=== PATIENT | female | born 1995 | race Caucasian/White ===

== ENCOUNTER 2022-03-02 07:08 | Emergency (ER) | payer OTHER, SELFPAY ==
--- NOTE | ~2022-03-02 | US_ITS ---
US OB <=14 wk fetus w TV DATE: 03/02/2022 09:55 INDICATION: Pelvic pain, vaginal bleeding TECHNIQUE: Real-time imaging via transabdominal and transvaginal approaches COMPARISON: None FINDINGS: The uterus measures 8.87 hours height, up to 5.5 cm anteroposterior dimension. Intrauterine gestational sac with pole and yolk sac are identified. [place]-rump length averages 0.74 cm consistent with 6 weeks 4 days +/- 4 days estimated gestational age and PRASHANT of 10/22/2022. heart rate of 132 bpm. There is an approximately 2.4 x 4.5 cm subchorionic hematoma. The ovaries are not visualized. No pelvic mass or abnormal free pelvic fluid collection is detected. IMPRESSION: 2.4 x 4.5 cm Subchorionic hematoma 6 week 4 day +/- 4 days estimated gestational age; PRASHANT: 10/22/2022 Reviewed, dictated and finalized at [facility]. Reviewed, dictated and finalized at [facility].
[2022-03-02 07:13] VITALS: BP 110/77; PULSE 90; RESP 18; TEMP 36.6; O2SAT 100
--- NOTE | 2022-03-02 07:52 | ED.GENADULT ---
HPI - General Adult General Chief complaint: Vaginal Bleeding <Rj Craig MD - Last Filed: 03/02/22 17:46> Stated complaint: , vag bld <Rj Craig MD - Last Filed: 03/02/22 17:46> Time Seen by Provider: 03/02/22 07:23 <Rj Craig MD - Last Filed: 03/02/22 17:46> History of Present Illness HPI narrative: 18-year-old female presenting to the emergency department for evaluation of vaginal bleeding and lower abdominal cramping. Patient states she suspects she is approximately 2 months . Patient states she was on a cigarette break when she began having vaginal bleeding. Patient states since then she has also had some lower abdominal cramping. Patient has not yet had an ultrasound with this <Rj Craig MD - Last Filed: 03/02/22 17:46> Related Data Allergies/adverse reactions: Allergies Allergy/AdvReac Type Severity Reaction Status Date / Time Penicillins Allergy Anaphylaxis Verified 03/02/22 07:13 <Rj Craig MD - Last Filed: 03/02/22 17:46> Review of Systems Review of Systems: CONSTITUTIONAL: Denies fever, chills, or sweats. EYES: Denies visual changes, redness, or discharge. ENT: Denies rhinorrhea, congestion, sore throat, or otalgia. CARDIOVASCULAR: Denies chest pain, palpitations, or edema. RESPIRATORY: Denies cough or dyspnea. GASTROINTESTINAL: Denies abdominal pain, nausea, vomiting, or diarrhea. GENITOURINARY: Lower abdominal cramping and vaginal bleeding., See HPI patient denies any urinary symptoms SKIN: Denies rash or itching. MUSCULOSKELETAL: Denies back pain, joint pain, or myalgia. NEUROLOGIC: Denies headache, numbness, or weakness. PSYCHIATRIC: Denies anxiety or depression. <Rj Craig MD - Last Filed: 03/02/22 17:46> Exam Narrative: APPEARANCE: Well appearing, no pain, no distress, well-nourished. HEAD: normocephalic, atraumatic. EYES: PERRLA/EOMI, conjunctivae clear. NOSE: Normal no drainage NECK: Supple. No adenopathy, no masses. RESPIRATORY: Airway patent, respirations nonlabored. Clear to auscultation bilaterally, no rales, rhonchi, wheezing. CARDIOVASCULAR: Regular rate and rhythm without murmurs rubs or gallops. ABDOMINAL: Soft, nontender, nondistended, normal bowel sounds MUSCULOSKELETAL: Moves all extremities. Strength/ROM intact, No edema, No calf tenderness. NEURO: Alert. Cranial nerves II through XII intact. Grossly intact SKIN: Warm, dry. Normal Color <Rj Craig MD - Last Filed: 03/02/22 17:46> APPEARANCE: Well appearing, no pain, no distress, well-nourished. HEAD: normocephalic, atraumatic. EYES: PERRLA/EOMI, conjunctivae clear. NOSE: Normal no drainage NECK: Supple. No adenopathy, no masses. RESPIRATORY: Airway patent, respirations nonlabored. Clear to auscultation bilaterally, no rales, rhonchi, wheezing. CARDIOVASCULAR: Regular rate and rhythm without murmurs rubs or gallops. ABDOMINAL: Soft, nontender, nondistended, normal bowel sounds MUSCULOSKELETAL: Moves all extremities. Strength/ROM intact, No edema, No calf tenderness. NEURO: Alert. Cranial nerves II through XII intact. Grossly intact SKIN: Warm, dry. Normal Color PELVIC: Normal external genitalia. Normal-appearing cervix, closed. Small amount of dark red blood in the vaginal vault <Lorie Lewis PA-C - Last Filed: 03/02/22 10:11> Course Course Emergency Course: Case was discussed with Dr. Childers, physician on-call for the automatic mounter. Patient was informed to have close follow-up with PRESENTATION TEAM MEMBER. Patient was encouraged to return the emergency department if she had any bright red blood. <Rj Craig MD - Last Filed: 03/02/22 17:46> Vital Signs Vital signs: Vital Signs Temperature 97.9 F 03/02/22 07:13 Pulse Rate 90 03/02/22 07:13 Respiratory Rate 18 03/02/22 07:13 Blood Pressure 110/77 03/02/22 07:13 Pulse Oximetry 100 03/02/22 07:13 Oxygen Delivery Room Air 03/02/22 07:13 Temperature 9
[2022-03-02 08:01] LABS: Basophils Absolute Auto 0.1 K/mm3 (0.0-0.1); Basophils Percent Auto 0.5 % (0.2-1.2); Eosinophils Absolute Auto 0.1 K/mm3 (0-0.3); Eosinophils Percent Auto 0.6 % (0-4.4); Hematocrit 38.6 % (37.0-47.0); Hemoglobin 13.4 g/dL (12.0-15.0); Immature Granulocyte Absolute 0.07 K/mm3 (0.00-0.031); Immature Granulocyte Percent A 0.5 % (0-0.5); Lymphocytes Absolute Auto 1.71 K/mm3 (0.9-3.2); Lymphocytes Percent Auto 13.3 % (18.3-44.2); Mean Corpuscular HGB Conc 34.7 g/dl (32-36); Mean Corpuscular Hemoglobin 31.9 pg (26-34); Mean Corpuscular Volume 91.9 fl (80-100); Mean Platelet Volume 10.1 fl (7.4-10.4); Monocytes Absolute Auto 0.8 K/mm3 (0.1-0.6); Monocytes Percent Auto 5.9 % (2.6-8.5); Neutrophils Absolute Auto 10.2 K/mm3 (1.3-6.7); Neutrophils Percent Auto 79.2 % (45.5-73.1); Platelet Count Result 279 k/mm3 (150-375); Red Cell Distribution Width 13.2 % (11.5-14.5); White Blood Count 12.8 K/mm3 (4.5-10.0)
[2022-03-02] MEDS: RHO(D) IMMUNE GLOBULIN 300 MCG/2 ML SYRINGE IM (08:51)
--- NOTE | 2022-03-02 09:04 | PC.NURSE ---
IM injection given.
--- NOTE | 2022-03-02 10:34 | PC.NURSE ---
disposable panties given to pt per her request
== END 2022-03-02 11:40 | disposition home or self-care (01) ==
PROVIDERS: Emergency Provider Emergency Medicine; PCP Advanced Practice Midwife
DX: O46.8X1 Other antepartum hemorrhage, first trimester (principal); Z3A.01 Less than 8 weeks gestation of pregnancy
CPT/HCPCS: 36415; 76801; 76817; 84702; 85025; 85461; 90384; 96372; 99284; J2790

== ENCOUNTER 2022-07-18 09:46 | Outpatient (CLI) | payer OTHER, SELFPAY ==
[2022-07-18 10:16] LABS: Hematocrit 33.8 % (35.0-49.0); Hemoglobin 11.2 g/dL (12.0-15.0)
[2022-07-18 10:58] LABS: HIV 1 P24 AG Negative (Negative); HIV 1/2 AB Negative (Negative)
[2022-07-18 11:32] LABS: Glucose 1 Hour PP 50gm Dose 133 mg/dL (70-130)
== END 2022-07-18 09:47 | disposition home or self-care (01) ==
LOC: CHSLAB 09:51
PROVIDERS: PCP Obstetrics & Gynecology; Visit Provider Obstetrics & Gynecology
DX: Z36.89 Encounter for other specified antenatal screening (principal); O36.0130 Maternal care for anti-D [Rh] antibodies, third trimester, not applicable or unspecified
CPT/HCPCS: 36415; 82947; 85014; 85018; 85461; 86703; 86850; 86900; 86901; 90384; J2790

== ENCOUNTER 2022-07-24 11:22 | Outpatient (CLI) | payer OTHER, SELFPAY ==
--- NOTE | ~2022-07-24 | US_ITS ---
EXAMINATION: US breast BI limited HISTORY: Masses of the outer right breast and lower outer quadrant of the left breast TECHNIQUE: Limited bilateral breast ultrasound is performed. FINDINGS: There is an 11 mm x 7 mm oval, circumscribed, parallel, complex cystic and solid mass with no posterior features or internal vascularity of the right breast at the 10:00 location. There are mi ldly dilated subareolar ducts of the left breast without discrete mass. IMPRESSION: Probably benign mass in the upper outer quadrant of the right breast such as clustered microcysts. Co ntinued clinical follow-up and follow-up targeted right breast ultrasound in six months are recommend ed. BI-RADS category 3, probably benign findings. Reviewed, dictated and finalized at [facility]. DRAWER IMPRESSION: Probably benign mass in the upper outer quadrant of the right breast such as cl ustered microcysts. Continued clinical follow-up and follow-up targeted right b reast ultrasound in six months are recommended. BI-RADS category 3, probably benign findings.
== END 2022-07-24 11:23 | disposition home or self-care (01) ==
LOC: CHSIMG 11:24
PROVIDERS: Visit Provider Obstetrics & Gynecology
DX: N63.23 Unspecified lump in the left breast, lower outer quadrant (principal); N63.15 Unspecified lump in the right breast, overlapping quadrants
CPT/HCPCS: 76642

== ENCOUNTER 2022-07-30 13:54 | Emergency (ER) | payer OTHER, SELFPAY ==
--- NOTE | ~2022-07-30 | US_ITS ---
EXAMINATION: US OB follow up DATE: 07/30/2022 14:48 INDICATION: Contractions. TECHNIQUE: Real-time ultrasound of the pelvis was performed. COMPARISON: 03/02/2022. FINDINGS: There is a single living fetus in transverse, head to maternal left presentation. The placenta is po sterior. The margin of the placenta lies at the edge of the internal cervical os, without covering it . heart rate is 149 beats per minute (bpm). The amniotic fluid index is 22.3 cm, which is sligh tly elevated (5th to 95th percentile is 9.2 to 23.1 cm. The following biometric data were obtained: Biparietal diameter (BPD): 7.2 cm; head circumference (HC): 2.3 cm; abdominal circumference (AC): 23. 0 cm; femur length (FL): 5.1 cm. These measurements are discordant, with a greater than 2 week gap between the head circumference and the before AC/FL. The FL/HC ratio is 18.8 which is low. The remaining ratios are within normal limits . Estimated weight is 1113 g +/- 167 g, which correlates with the 10th percentile when 10/17/2022 i s used as estimated date of delivery. As single measurements, these parameters are each equal to the following estimated gestational ages w ith ranges of +/- 2 standard deviations: BPD: 28 weeks 5 days +/- 2 weeks 1 days. HC: 29 weeks 5 days +/- 2 weeks 0 days. AC: 27 weeks 3 days +/- 2 weeks 1 days. FL: 27 weeks 3 days +/- 2 weeks 1 days. estimated gestational age based solely on measurements from this exam is 28 weeks 2 days +/- 2 weeks 0 days. IMPRESSION: 1. Single living fetus in transverse presentation. 2. Grade 2 placenta previa, recommend repeat ultrasound at 32 weeks 2 assess persistence. 3. Biometrics detailed above. 4. Borderline polyhydramnios. 5. Possible asymmetric intrauterine growth restriction, recommend continued clinical and sonographic follow-up. 4. PRASHANT by ultrasound 10/20/2022. Reviewed, dictated and finalized at [facility] MECHANIC HELPER IMPRESSION: 1. Single living fetus in transverse presentation. 2. Grade 2 placenta previa, recommend repeat ultrasound at 32 weeks 2 assess p ersistence. 3. Biometrics detailed above. 4. Borderline polyhydramnios. 5. Possible asymmetric intrauterine growth restriction, recommend continued cli nical and sonographic follow-up. 4. PRASHANT by ultrasound 10/20/2022.
[2022-07-30 13:55] VITALS: BP 110/59; PULSE 78; RESP 20; TEMP 37.1; O2SAT 97
[2022-07-30] MEDS: SODIUM CHLORIDE 0.9% IV 1,000 ML 999 ML IV CONT (14:56)
[2022-07-30 14:58] LABS: Basophils Absolute Auto 0.06 K/mm3 (0.00-0.10); Basophils Percent Auto 0.3 % (0.0-1.0); Eosinophils Absolute Auto 0.07 K/mm3 (0.02-0.50); Eosinophils Percent Auto 0.4 % (1.0-6.0); Hematocrit 31.1 % (35.0-49.0); Hemoglobin 10.6 g/dL (12.0-15.0); Immature Granulocyte Percent A 3.4 % (0.0-0.0); Lymphocytes Absolute Auto 1.85 K/mm3 (1.10-4.50); Lymphocytes Percent Auto 10.5 % (18.0-42.0); Mean Corpuscular HGB Conc 34.1 g/dL (32.0-36.0); Mean Corpuscular Hemoglobin 32.8 pg (27.0-31.0); Mean Corpuscular Volume 96.3 fL (78.0-102.0); Monocytes Absolute Auto 0.97 K/mm3 (0.10-0.90); Monocytes Percent Auto 5.5 % (2.0-11.0); Neutrophils Absolute Auto 14.1 K/mm3 (1.7-7.2); Neutrophils Percent Auto 79.9 % (50.0-70.0); Platelet Count Result 215 K/mm3 (150-420); Red Blood Count 3.23 M/mm3 (4.20-5.40); Red Cell Distribution Width 13.1 % (11.6-14.4); White Blood Count 17.6 K/mm3 (4.8-10.8)
[2022-07-30 15:17] LABS: Alanine Aminotransferase 17 U/L (14-59); Albumin Level 2.8 g/dL (3.4-5.0); Alkaline Phosphatase 69 U/L (46-116); Anion Gap 8 mmol/L (8-16); Aspartate Amino Transferase 18 U/L (15-37); Bilirubin,Total 0.2 mg/dL (0.00-1.00); Blood Urea Nitrogen 6 mg/dL (7-18); Calcium 8.7 mg/dL (8.5-10.1); Carbon Dioxide 28 mmol/L (21-32); Chloride 102 mmol/L (98-108); Estimated CRCL calculation 144 ml/min; Estimated Glomerular Filt Rate > 60; Glucose 91 mg/dL (70-99); Osmolality Calculated 283 mOsm/kg (285-295); Sodium 138 mmol/L (136-145); Total Protein 6.4 g/dL (6.4-8.2)
[2022-07-30 15:43] LABS: Add Urine Microscopic? YES; Appearance Urine Clear (Clear); Bilirubin Urine Negative (Negative); Blood Urine Trace-Intact (Negative); Color Urine Yellow (Yellow); Glucose Urine UA Negative (Negative); Ketones Urine Negative (Negative); Leukocyte Esterase Ur Negative (Negative); Nitrate Urine Negative (Negative); Protein Urine Negative (Negative); Specific Grav Ur 1.025 (1.010-1.020); Urobilinogen Urine 0.2 mg/dL (0.2-1.0)
[2022-07-30 15:50] LABS: RBC Urine 0-2 /hpf (0-2); WBC Urine None seen /hpf (0-3)
[2022-07-30 15:51] LABS: Bacteria Urine Trace /hpf; Squamous Epithelial Cell Urine Moderate /hpf (Few)
[2022-07-30] MEDS: POTASSIUM CHLORIDE 20 MEQ TABLET 60 MEQ PO (16:36)
--- NOTE | 2022-07-30 16:55 | ED.PREGNANCY ---
HPI - General Chief complaint: OB/Uterine Contractions Stated complaint: trinity herrera Time Seen by Provider: 07/30/22 13:58 Source: patient and RN notes reviewed Limitations: no limitations History of Present Illness HPI Narrative: no acute uterine contractions or vaginal loss Complaint: contractions Pain Consistency: now resolved Severity: mild Severity scale (1-10): 1 Radiation: other (none) Relieving factors: none Exacerbating factors: none Vaginal bleeding: none Patient : Yes OB History - Current : no complications care: followed by OB Related Data Allergies Allergy/AdvReac Type Severity Reaction Status Date / Time Penicillins Allergy Anaphylaxis Verified 03/02/22 07:13 Review of Systems Review of Systems: All systems reviewed & are unremarkable except as noted in HPI and below Constitutional: Constitutional: Reports no additional constitutional complaints Eyes: Eyes: Reports no additional eye complaints ENT: Reports system reviewed and no additional complaints, except as documented Cardiovascular: Cardiovascular: Reports no additional cardiovascular complaints Respiratory: Respiratory: Reports no additional respiratory complaints Gastrointestinal: Gastrointestinal: Reports no additional gastrointestinal complaints Genitourinary: Genitourinary: Reports no additional female genitourinary complaints Musculoskeletal: Musculoskeletal: Reports no additional musculoskeletal complaints Integumentary/Breasts: Skin/Breast: Reports system reviewed and no additional complaints, except as docu Neurologic: Reports system reviewed and no additional complaints, except as documented Psychiatric: Psychiatric: Reports no additional psychiatric complaints Endocrine: Endocrine: Reports no additional endocrine complaints Hematologic/Lymphatic: Hematologic/Lymphatic: Reports no additional hematologic/lymphatic complaints Allergic/Immunologic: Allergic/Immunologic: Reports no additional allergic/immunologic complaints PMFSH Past Medical History Medical History Exam Const: General: healthy appearing, no acute distress and well nourished Nutritional Appearance: well nourished Orientation/consciousness: patient oriented x3 Limitations: no limitations HENMT: Head: normal to inspection Ears: external ears normal, TM's normal bilaterally and EAC's normal Face/Nose/Sinus: Normal external nose present, Normal nares present, normal facial exam and sinuses nontender Face and sinus: normal facial exam and sinuses nontender Mouth: Yes Normal oral and palatal mucosa present and Yes moist mucous membranes Teeth and gingiva: dentition normal Throat: posterior oropharynx normal Eyes: Conjunctivae: conjunctivae normal Pupils: Equal, round and reactive pupils present EOM: EOMs intact bilaterally Neck: Neck: normal visual inspection, no lymphadenopathy and no meningeal signs Chest: Chest palpation & inspection: normal inspection of the chest Resp: Effort & Inspection: normal respiratory effort Auscultation: clear to auscultation bilaterally Cardio: Rate: regular rate Rhythm: regular rhythm GI: GI Palp: Yes Soft to palpation and No Tenderness to palpation present (GI) Auscultation: normal bowel sounds : General: Yes bladder normal to palpation and Yes no CVA tenderness External Female Exam: normal external appearance (gravid uterus) Bimanual exam- vagina & uterus: bladder normal to palpation Back/Spine/Pelvis: Back: no CVA tenderness Skin: General skin exam: normal color Rashes: no rashes Wounds: no wounds Neuro: General: patient oriented x3, moves all extremities, no meningeal signs, no focal motor deficits and CN's II-XI intact bilaterally Cranial nerves: Yes Equal, round and reactive pupils present and Yes Nystagmus not present Speech: normal speech Gait exam (Neuro): Normal gait present Extrem: Gene
[2022-07-30 17:17] VITALS: BP 112/62; PULSE 76; RESP 18; TEMP 37.1; O2SAT 98
[2022-07-30 17:19] VITALS: PULSE 74; RESP 20; TEMP 36.7; O2SAT 99
== END 2022-07-30 17:20 | disposition home or self-care (01) ==
PROVIDERS: Emergency Provider Emergency Medicine; PCP Obstetrics & Gynecology
DX: O26.899 Other specified pregnancy related conditions, unspecified trimester (principal); E87.6 Hypokalemia; D72.829 Elevated white blood cell count, unspecified; Z3A.00 Weeks of gestation of pregnancy not specified
CPT/HCPCS: 36415; 76816; 80053; 81001; 85025; 96360; 99284; A9270; J7030

== ENCOUNTER 2022-10-09 15:55 | Outpatient (RCR) | payer OTHER, SELFPAY ==
[2022-10-09 18:00] LABS: Hematocrit 35.7 % (37.0-47.0); Hemoglobin 12.3 g/dL (12.0-15.0)
[2022-10-09 18:17] LABS: Glucose 1 Hour PP 50gm Dose 124 mg/dL
[2022-10-09 18:55] LABS: HIV 1/2 Ab P24 Ag Result Negative (Negative)
== END 2023-01-07 23:59 | disposition home or self-care (01) ==
LOC: ANHLAB 15:55
PROVIDERS: PCP Obstetrics & Gynecology; Visit Provider Obstetrics & Gynecology
DX: Z11.4 Encounter for screening for human immunodeficiency virus [HIV] (principal); Z29.13 Encounter for prophylactic Rho(D) immune globulin; O36.0130 Maternal care for anti-D [Rh] antibodies, third trimester, not applicable or unspecified; Z3A.00 Weeks of gestation of pregnancy not specified
CPT/HCPCS: 36415; 82947; 85014; 85018; 85461; 86703; 86850; 86900; 86901; 90384; G0432; J2790; J7120

== ENCOUNTER 2022-10-10 05:20 | Inpatient (IN) | payer OTHER, SELFPAY ==
[2022-10-10] VITALS (58 sets, daily range): BP systolic 99–120; BP diastolic 58–83; PULSE 42–94; RESP 11–18; TEMP 36.1–37.2; O2SAT 90–100; BMI 27.5; BMI 28.3
[2022-10-10] MEDS: LACTATED RINGERS 1,000 ML 999 ML IV CONT ×2 (05:55→06:44)
--- NOTE | 2022-10-10 06:31 | WPDANESEPPF ---
Anes - Initial Pre Proc Eval Procedure: Operation Date: 10/10/22 07:30 Proposed Procedures p Repeat Section with Bilateral Salpingectomy - Grisel Childers MD Date/Time: 10/10/22 06:31 Surgeon: Grisel Childers MD Pre Op Diagnosis: C/S Patient Data Age: 27 Gender: F Height: 1.63 m Weight: 75 kg Last Vital Signs Temp 36.8 C 10/10/22 05:57 Pulse 76 10/10/22 06:15 Resp 18 10/10/22 05:57 BP 105/60 10/10/22 06:15 Allergies Allergy/AdvReac Type Severity Reaction Status Date / Time Penicillins Allergy Severe Anaphylaxis Verified 09/24/22 14:45 Home Medications Medication Instructions Recorded Confirmed Type prenat.vits,jed,[id number] 1 tablet PO DAILY 09/24/22 09/24/22 History valacyclovir 500 mg tablet 500 mg PO DAILY 09/24/22 09/24/22 History (Valtrex) Laboratory Tests 10/10/22 06:23 WBC Pending RBC Pending Hgb Pending Hct Pending MCV Pending MCH Pending MCHC Pending RDW Pending Plt Count Pending MPV Pending Immature Gran % (Auto) Pending Neut % (Auto) Pending Lymph % (Auto) Pending [place] % (Auto) Pending Eos % (Auto) Pending Baso % (Auto) Pending Lymph # (Auto) Pending [place] # (Auto) Pending Eos # (Auto) Pending Baso # (Auto) Pending Abs Immat Gran (auto) Pending Absolute Neuts (auto) Pending Absolute Nucleated RBC Pending Nucleated RBC % Pending Patient hx anesthesia problems: none Family hx anesthesia problems: none Results Review: All pre-operative results and documents have been reviewed as part of the pre-operative evaluation. [facility] Past Medical History Medical History Genital herpes Smoker Surgical History Surgical History (Updated 10/10/22 @ 06:31 by Melo Todd MD) History of section Family History Family History Other Patient denies significant medical history Social History Social History Substance use: never Spiritual care concerns: No Anes - Eval Final PreProcedure Day of Procedure 10/10/22 06:31 Patient weight: overweight Heart: regular rate and rhythm Lungs: clear to auscultation Airway: Mallampati scale class II and special considerations poor dentition Neurological: alert and oriented Last oral intake: >/= 8 hours ASA classification: III Emergent: no Anesthetic plan: proceed Anesthesia type and monitoring: regional spinal and standard monitoring Results Review: All pre-operative results and documents have been reviewed as part of the pre-operative evaluation. Informed Consent: The patient's anesthetic plan and its attendant risks and benefits were discussed with the patient/family/POA. Questions were solicited and answers provided to the satisfaction of the patient/family/POA.
[2022-10-10 06:39] LABS: Basophils Absolute Auto 0.1 K/mm3 (0.0-0.1); Basophils Percent Auto 0.5 % (0.2-1.2); Eosinophils Absolute Auto 0.1 K/mm3 (0-0.3); Eosinophils Percent Auto 0.7 % (0-4.4); Hematocrit 34.9 % (37.0-47.0); Hemoglobin 11.8 g/dL (12.0-15.0); Immature Granulocyte Absolute 0.35 K/mm3 (0.00-0.031); Immature Granulocyte Percent A 2.2 % (0-0.5); Lymphocytes Absolute Auto 1.75 K/mm3 (0.9-3.2); Lymphocytes Percent Auto 11.1 % (18.3-44.2); Mean Corpuscular HGB Conc 33.8 g/dl (32-36); Mean Corpuscular Hemoglobin 32.5 pg (26-34); Mean Corpuscular Volume 96.1 fl (80-100); Monocytes Absolute Auto 1.1 K/mm3 (0.1-0.6); Neutrophils Absolute Auto 12.4 K/mm3 (1.3-6.7); Neutrophils Percent Auto 78.5 % (45.5-73.1); Platelet Count Result 193 k/mm3 (150-375); Red Blood Count 3.63 M/mm3 (4.2-5.4); White Blood Count 15.8 K/mm3 (4.5-10.0)
[2022-10-10] MEDS: ceFAZolin 2 GM/D5W 50 ML 2 GM/50 ML BAG IVPB (06:45)
--- NOTE | 2022-10-10 06:50 | LDADM ---
This patient, Lynn Childers, was admitted to Labor/Delivery/Recovery 120 on 10/10/22 at 05:20. Plans for labor, pain management and were discussed with patient. Patient/family oriented to hospital policies and general routines including ID bracelet, bed and alarms, visiting hours, pain management, procedures, bathroom and other care routines, personal items, smoking policy, room service/diet and guest tray routines, infant security routines, and visiting hours. Patient/Family are encouraged to report perceived risks to care and to ask questions if they do not understand what they are told or what they should do. See OBIX for further documentation.
--- NOTE | 2022-10-10 07:20 | PM.IMHP ---
H&P: HPI History of Present Illness Date/Time: 10/10/22 07:20 Chief Complaint: R CS Narrative: Lynn is a 27yo at 39.0 here for R CS. Has two prior. Also wants sterilization with bilateral salpingectomy. complicated by genital herpes, on valtrex, tobacco use, Rh neg, got Rhogam, and circumvallate and bilobed placenta. Review of Systems Review of Systems: All systems reviewed & are unremarkable except as noted in HPI and below PMFSH Past Medical History Medical History Genital herpes Smoker Surgical History Surgical History (Updated 10/10/22 @ 07:22 by Grisel Childers MD) History of section Family History Family History Other Patient denies significant medical history Social History Social History Smoking packs per day: 1 Smoking cigarettes per day: 20.0 Years smoked: 14 Smoking pack-years: 14.00 Smoking status: Current every day smoker Tobacco type: cigarettes Second hand tobacco smoke exposure: Yes Substance use: never Lack of Transportation: No Lack of Food: Never True Current Housing: I Have Housing Concerned About Future Housing: No Difficulty Paying Gas/Electric Bills: No Difficulty Paying for Meds: No Currently Unemployed: No Education: Don't Know Difficulty w/ Childcare or Family Care: No Spiritual care concerns: No Meds Home Medications and Allergies Home Medications Medication Instructions Recorded Confirmed Type prenat.vits,jed,[id number] 1 tablet PO DAILY 09/24/22 09/24/22 History valacyclovir 500 mg tablet 500 mg PO DAILY 09/24/22 09/24/22 History (Valtrex) Allergies Allergy/AdvReac Type Severity Reaction Status Date / Time Penicillins Allergy Severe Anaphylaxis Verified 09/24/22 14:45 Vital Signs Vital Signs - 24 hr 10/10/22 05:49 10/10/22 06:00 10/10/22 06:15 Temperature Pulse Rate 85 80 76 Respiratory Rate Blood Pressure 111/68 102/67 105/60 Oxygen Delivery 10/10/22 06:35 10/10/22 06:45 10/10/22 05:57 Temperature 98.3 F Pulse Rate 85 79 Respiratory Rate 18 Blood Pressure 111/59 L 115/58 L Oxygen Delivery 10/10/22 06:48 Temperature Pulse Rate Respiratory Rate Blood Pressure Oxygen Delivery Room Air Exam Const: General: no acute distress Resp: Effort & Inspection: normal respiratory effort Auscultation: clear to auscultation bilaterally Cardio: Rate: regular rate Rhythm: regular rhythm GI: GI Palp: Yes Soft to palpation Extrem: General: normal to inspection H&P: Results Labs Labs: Short CBC 10/10/22 Range/Units 06:23 WBC 15.8 H (4.5-10.0) K/mm3 Hgb 11.8 L (12.0-15.0) g/dL Hct 34.9 L (37.0-47.0) % Plt Count 193 (150-375) k/mm3 Assessment and Plan Assessment and plan (1) History of delivery: Code(s): Z98.891 - History of uterine scar from previous surgery Status: Acute (2) Genital herpes: Code(s): A60.00 - Herpesviral infection of urogenital system, unspecified Status: Acute (3) Encounter for sterilization: Code(s): Z30.2 - Encounter for sterilization Status: Acute Plan Will proceed with R CS and bilateral salpingectomy. DIscussed RBA, consented, questions answered. has been on valtrex
--- NOTE | 2022-10-10 07:23 | WPDHPUPDATE1 ---
History and Physical Update Update Date/Time: 10/10/22 07:23 History and Physical has been reviewed, including an updated exam of the patient. There are NO changes in the patient's condition. Risks, benefits, and alternatives have been discussed and questions answered. Patient agrees to proceed with procedure.
[2022-10-10] MEDS: KETOROLAC 30 MG/ML VIAL (*BKC) IV PUSH ×3 (08:16→23:10)
--- NOTE | 2022-10-10 08:33 | PM.OBPRVD ---
OB - Delivery Note Procedure Delivery date: 10/10/22 Procedure: Procedures Operation Date: 10/10/22 07:30 <No data on this case meets the specified criteria> repeat low transverse section and bilateral salpingectomy Events: Previous Delivery Route of delivery: Specimen: Yes (placenta) Quantitative Blood Loss (ml): 475 Anesthesia type: Spinal Disposition: Floor Complications: none Narrative: The patient was taken to the OR and received spinal anesthesia. She was placed in dorsal supine position with left lateral tilt. SCDs and moody were placed. She was prepped and draped in the normal sterile fashion. A Pfannensteil skin incision was made and carried through to the underlying layer of fascia. The fascia was incised in the midline and then extended laterally using Real scissors. The muscles were in the midline and the peritoneum was entered bluntly. The peritoneal incision was extended inferiorly and superiorly with care to avoid the bladder. The bladder blade was then inserted, the vesicouterine peritoneum was grasped, incised with Metzenbaum scissors, and a bladder flap created. The bladder blade was reinserted. A low transverse uterine incision was made with a scalpel and extended bluntly. AROM was performed and fluid was noted to be clear. The head was delivered, followed by the remainder of the baby. The baby's oropharynx was suctioned. After 30 seconds, the cord was clamped and cut and the infant was handed off. Cord blood was obtained and the placenta was then removed manually. The uterus was exteriorized. A moist lap sponge was used to curette the endometrium. The uterine incision was then closed with one layer of 0-Vicryl in a running, locking fashion. Good hemostasis was noted. I then turned attention to the tubes. Using the Ligasure, the right tube was removed by sequentially clamping, cauterizing, and cutting the tube free from the cornua and the broad ligament. Similarly, the left tube was removed. The posterior cul de sac was irrigated with normal saline and cleared of all clot and debris. The uterus was returned to the abdomen. Both lateral gutters were then irrigated. The rectus muscles were inspected and found to be hemostatic. The fascia was reapproximated using 0-Vicryl in running fashion. The subcutaneous tissue was irrigated with normal saline and made hemostatic with Bovie electrocautery. The skin was then closed with reabsorbable kim. Steri strips and a bandage were applied. The uterus was evacuated. The patient tolerated the procedure very well. All counts were correct. She was taken to the recovery room in good condition. Baby Date of : 10/10/22 Time of : 07:57 Weeks of gestation at delivery: 39 Infant gender: Female Weight (pounds): 6 Weight (ounces): 10 presentation: vertex Placenta delivery description: Manual Removal Cord Vessel Description: 3 Vessels, Nuchal Cord and Delayed Cord Clamping score one minute: 9 score five minutes: 9
[2022-10-10] MEDS: MORPHINE SULFATE INJ (*CRX) 10 MG/ML AMP 2 MG IV PUSH (10:39)
[2022-10-10] MEDS: OXYTOCIN 30 UNITS/NS 500 ML 30 UNITS/500 ML BAG 125 UNITS IV CONT (11:05)
[2022-10-10 11:50] LABS: Amphetamine Screen Urine Negative (Negative); Barbiturate Screen Urine Negative (Negative); Benzodiazepines Screen Urine Negative (Negative); Cannabinoid Screen Urine Positive (Negative); Cocaine Screen Urine Negative (Negative); Methadone Screen Urine Negative (Negative); Opiate Screen Urine Positive (Negative); Phencyclidine Screen Urine Negative (Negative)
[2022-10-10] MEDS: HYDROcodone/acetaminophen (*CRX) 10-325 MG TABLET 1 TAB PO ×2 (13:00→17:00)
[2022-10-10 13:50] LABS: Rapid Plasma Reagin Non-Reactive (NonReactive)
[2022-10-10] MEDS: DEXTROSE 5%/0.45% SOD CHL 1,000 ML 125 ML IV CONT (15:30)
[2022-10-10] MEDS: DOCUSATE SODIUM 100 MG CAPSULE PO (17:04)
[2022-10-10] MEDS: diphenhydrAMINE HCl INJ 50 MG/ML VIAL 25 MG IV PUSH (18:06)
--- NOTE | 2022-10-10 18:14 | PC.NURSE ---
UDS collected after pt had been given morphine and anesthesia meds for delivery.
[2022-10-11] MEDS: SIMETHICONE 80 MG TAB.CHEW PO (03:10)
[2022-10-11] MEDS: HYDROcodone/acetaminophen (*CRX) 5-325 MG TABLET 1 TAB PO ×3 (03:10→23:46)
[2022-10-11 04:08] VITALS: BP 115/74; PULSE 74; RESP 18; TEMP 36.6; O2SAT 98
[2022-10-11 04:30] LABS: Basophils Absolute Auto 0.1 K/mm3 (0.0-0.1); Basophils Percent Auto 0.5 % (0.2-1.2); Eosinophils Absolute Auto 0.1 K/mm3 (0-0.3); Eosinophils Percent Auto 0.5 % (0-4.4); Hematocrit 32.4 % (37.0-47.0); Hemoglobin 10.9 g/dL (12.0-15.0); Immature Granulocyte Absolute 0.28 K/mm3 (0.00-0.031); Immature Granulocyte Percent A 1.7 % (0-0.5); Lymphocytes Absolute Auto 1.62 K/mm3 (0.9-3.2); Lymphocytes Percent Auto 9.9 % (18.3-44.2); Mean Corpuscular HGB Conc 33.6 g/dl (32-36); Mean Corpuscular Hemoglobin 32.1 pg (26-34); Mean Corpuscular Volume 95.3 fl (80-100); Mean Platelet Volume 10.4 fl (7.4-10.4); Monocytes Percent Auto 5.8 % (2.6-8.5); Neutrophils Absolute Auto 13.4 K/mm3 (1.3-6.7); Neutrophils Percent Auto 81.6 % (45.5-73.1); Platelet Count Result 188 k/mm3 (150-375); Red Cell Distribution Width 14.3 % (11.5-14.5); White Blood Count 16.4 K/mm3 (4.5-10.0)
[2022-10-11] MEDS: IBUPROFEN 600 MG TABLET PO ×3 (08:26→23:46)
[2022-10-11] MEDS: MULTIVIT/MIN/PREN/FOL AC/IRON TABLET 1 TAB PO (08:26)
[2022-10-11] MEDS: DOCUSATE SODIUM 100 MG CAPSULE PO ×2 (08:26→16:19)
[2022-10-11] MEDS: HYDROcodone/acetaminophen (*CRX) 10-325 MG TABLET 1 TAB PO ×3 (08:29→16:20)
[2022-10-11 08:30] VITALS: BP 111/67; PULSE 66; RESP 18; TEMP 37; O2SAT 100
--- NOTE | 2022-10-11 08:46 | P.PNOB_ITS ---
OB - PN: Subj Subjective Date/time seen: 10/11/22 08:46 Patient comments: no complaints and incisional pain baby status: doing well and nursing well feeding status: exclusively breast feeding Narrative: POD 1 from primary CS. Doing well. Normal lochia. Eating, ambulating, moody out, has voided. OB - PN: Obj Data Labs 10/11/22 03:16 Labs: Laboratory Results - last 24 hr 10/10/22 10/10/22 10/11/22 06:27 07:03 03:16 WBC RBC Hgb Hct MCV MCH MCHC RDW Plt Count MPV Immature Gran % (Auto) Neut % (Auto) Lymph % (Auto) Hendricks % (Auto) Eos % (Auto) Baso % (Auto) Lymph # (Auto) Hendricks # (Auto) Eos # (Auto) Baso # (Auto) Abs Immat Gran (auto) Absolute Neuts (auto) Absolute Nucleated RBC Nucleated RBC % Urine Opiates Screen Positive A Urine Methadone Screen Negative Ur Barbiturates Screen Negative Ur Phencyclidine Scrn Negative Ur Amphetamine Screen Negative U Benzodiazepines Scrn Negative Urine Cocaine Screen Negative U Cannabinoids Screen Positive A RPR Non-reactive Blood Type A Negative Antibody Screen Negative Screen Negative Baby's Blood Type A pos Baby's VERONICA Negative Doses of RhIg Required 1 10/11/22 03:16 WBC 16.4 H RBC 3.40 L Hgb 10.9 L Hct 32.4 L MCV 95.3 MCH 32.1 MCHC 33.6 RDW 14.3 Plt Count 188 MPV 10.4 Immature Gran % (Auto) 1.7 H Neut % (Auto) 81.6 H Lymph % (Auto) 9.9 L Hendricks % (Auto) 5.8 Eos % (Auto) 0.5 Baso % (Auto) 0.5 Lymph # (Auto) 1.62 Hendricks # (Auto) 1.0 H Eos # (Auto) 0.1 Baso # (Auto) 0.1 Abs Immat Gran (auto) 0.28 H Absolute Neuts (auto) 13.4 H Absolute Nucleated RBC 0.0 Nucleated RBC % 0.0 Urine Opiates Screen Urine Methadone Screen Ur Barbiturates Screen Ur Phencyclidine Scrn Ur Amphetamine Screen U Benzodiazepines Scrn Urine Cocaine Screen U Cannabinoids Screen RPR Blood Type Antibody Screen Screen Baby's Blood Type Baby's VERONICA Doses of RhIg Required OB - PN A/P Plan day: 1 Plan: routine care Comments: ambulate Time Spent With Patient Time: Total time spent is greater than 50% in coordination of care (as documented) at patient's floor/unit and/or counseling patient: Exam Narrative: NAD abdomen soft, appropriately tender, incision bandaged Extremities nontender with 1+ edema
[2022-10-11] MEDS: RHO(D) IMMUNE GLOBULIN 300 MCG/2 ML SYRINGE IM (13:15)
--- NOTE | 2022-10-11 13:51 | WPDANLDPN2 ---
Anes-Prog Note L&D Date/Time: 10/11/22 13:51 Comfortable throughout: section Neuraxial method: spinal Epidural/Spinal procedure site: clean & non-tender Neuro status: Neuro function grossly intact. Cardiovascular status: normal Respiratory status: normal Airway patency: baseline Mental status: baseline Post-Op hydration status: normal Vital Signs: Last Vital Signs Temp 98.6 F 10/11/22 08:30 Pulse 66 10/11/22 08:30 Resp 18 10/11/22 08:30 BP 111/67 10/11/22 08:30 Pulse Ox 100 10/11/22 08:30 O2 Del Method Room Air 10/11/22 04:08 Pain score (VAS): 0 I/O: Intake & Output 10/10/22 10/11/22 10/11/22 23:59 07:59 15:59 Intake Total 1300 200 Output Total 1600 1100 Balance -300 -900 Post-procedural complaints: pruritis moderate, treatment effective (meds X 1) Patient feedback: Patient satisfied with anesthetic care.
--- NOTE | 2022-10-11 13:51 | WPDANLDNPN2 ---
Anes-Prog Note L&D-Neuraxial Date/Time: 10/11/22 13:51 Neuraxial medications: intrathecal PF morphine Opiod-related complaints: pruritis moderate, treatment effective Patient feedback: Patient satisfied with post-operative pain management.
[2022-10-11] MEDS: LANOLIN (LANSINOH) 7.5 GM CREAM 1 APPLIC TOPICAL (16:21)
[2022-10-11 19:32] VITALS: BP 124/88; PULSE 81; RESP 18; TEMP 36.8; O2SAT 99
[2022-10-12] MEDS: HYDROcodone/acetaminophen (*CRX) 5-325 MG TABLET 1 TAB PO (05:05)
[2022-10-12 09:22] VITALS: BP 117/75; PULSE 81; RESP 18; TEMP 36.7; O2SAT 100
[2022-10-12] MEDS: DOCUSATE SODIUM 100 MG CAPSULE PO (09:31)
[2022-10-12] MEDS: HYDROcodone/acetaminophen (*CRX) 10-325 MG TABLET 1 TAB PO (09:31)
[2022-10-12] MEDS: MULTIVIT/MIN/PREN/FOL AC/IRON TABLET 1 TAB PO (09:31)
[2022-10-12] MEDS: IBUPROFEN 600 MG TABLET PO (09:31)
--- NOTE | 2022-10-12 10:11 | PM.OBPNVD ---
OB - PN: Subj Subjective Date/time seen: 10/12/22 10:11 Patient comments: no complaints and pain well controlled baby status: doing well and nursing well [place] feeding status: exclusively breast feeding Narrative: would like DC home. OB - PN: Obj Data Labs 10/11/22 03:16 OB - PN A/P Plan day: 2 Plan: routine care and discharge home Comments: DC instructions given Time Spent With Patient Time: Total time spent is greater than 50% in coordination of care (as documented) at patient's floor/unit and/or counseling patient: Exam Narrative: NAD abdomen soft, appropriately tender, incision CDI Extremities nontender with 1+ edema
--- NOTE | 2022-10-12 10:15 | P.DS_ITS ---
DS: Admitting Diagnosis Discharge Date 10/12/22 Admitting Diagnosis term IUP, prior CS DS: Discharge Diagnosis Discharge Diagnosis (1) delivery delivered: Code(s): O82 - Encounter for delivery without indication Status: Acute OB - DS: Summary Hospital Course Hospital Course: Lynn was admitted for scheduled repeat section at 39w. She also had a bilateral salpingectomy for sterilization. She had an uncomplicated delivery and course. She was discharged home on day 2 in stable condition.l OB Procedures : Ultrasound OB Procedures Intrapartum: and Tubal ligation OB Procedures: : None Peripartum Data Delivery Method: Section Procedures: Procedures Operation Date: 10/10/22 07:30 Actual Procedure Side Surgeon p Repeat Section with Bilateral Salpingectomy Grisel Childers MD complications: none Status at Discharge Functional status at discharge: independent ambulation Time Spent with Patient Time attestation: Total time spent providing and/or coordinating discharge services: Exam Narrative: NAD abdomen soft, appropriately tender, incision CDI DS: Data Data Completed and Pending Pending studies at discharge: Pending at discharge 10/10/22 08:05 Surgical [PTH] Routine Discharge Plan Discharge Attending physician on discharge: Grisel Childers Discharging Clinician: Grisel Childers Anticipated Discharge Date/Time: 10/12/22 10:12 Patient Disposition: Home, Self-Care Activity: may shower, no straining, may drive after 2 weeks and pelvic rest Diet: regular Patient Instructions: Antibiotic Form Stand Alone Forms: General Discharge Information Follow-up/Referrals: Grisel Childers MD [Physician] - 1 Week Discharge Medications: New hydrocodone-acetaminophen 5-325 mg Tablet 1 tablet PO Q4-5H PRN (Reason: Moderate Pain (4-6)) Qty: 40 0RF docusate sodium 100 mg Capsule 100 mg PO BID PRN (Reason: Constipation) Qty: 60 0RF ibuprofen 600 mg Tablet 600 mg PO Q6H PRN (Reason: Cramping) Qty: 60 0RF Continued valacyclovir [Valtrex] 500 mg Tablet 500 mg PO DAILY #2 Tablet 1 tablet PO DAILY Date of admission: 10/10/22 05:20 Primary Care Provider: PHYSICIAN,INTENSIVE CARE ANAESTHETIST Admitting Provider: Grisel Childers Attending physician on admission: Grisel Childers Condition: Stable
--- NOTE | 2022-10-12 11:25 | PC.NURSE ---
Patient viewed the discharge video Mother & Baby Care, The First Two Weeks . Patient was given the opportunity and encouraged to ask questions. Patient verbalized understanding of information shared and has been given the mother/baby guide for home reference.
== END 2022-10-12 11:25 | disposition home or self-care (01) | DRG 540 ==
LOC: ANHLDR 05:25 → ANHOB2 11:26
PROVIDERS: Admitting Provider Obstetrics & Gynecology; Visit Provider Obstetrics & Gynecology
PROC: 10D00Z1 Extraction of Products of Conception, Low, Open Approach (ICD-10-PCS; CPT 59514; principal; 2022-10-10 07:30)
DX: O34.219 Maternal care for unspecified type scar from previous cesarean delivery (principal); O98.52 Other viral diseases complicating childbirth; Z30.2 Encounter for sterilization; B00.9 Herpesviral infection, unspecified; O43.113 Circumvallate placenta, third trimester; O99.334 Smoking (tobacco) complicating childbirth; F17.210 Nicotine dependence, cigarettes, uncomplicated; O76 Abnormality in fetal heart rate and rhythm complicating labor and delivery; O69.81X0 Labor and delivery complicated by cord around neck, without compression, not applicable or unspecified; Z3A.39 39 weeks gestation of pregnancy; Z37.0 Single live birth; Z67.91 Unspecified blood type, Rh negative; Z88.0 Allergy status to penicillin
CPT/HCPCS: 36415; 80307; 85025; 85461; 86592; 86850; 86900; 86901; 88302; A9270; J0131; J0690; J1200; J1885; J2270; J2274; J2370; J2405; J2590; J2704; J7120

== ENCOUNTER 2023-09-09 09:19 | Outpatient (CLI) | payer OTHER, SELFPAY ==
--- NOTE | 2023-09-10 14:35 | WPDHOLTEREM ---
Holter/Event Monitor Holter/Event Monitor Date of procedure: 09/09/23 Holter/Event Procedure: 24 Hr Holter Monitor Indications: Syncope Conclusion: 1. 24 hour holter monitor on 09/09/23. 2. Underlying rhythm is sinus rhythm. HR range 40-126 bpm; average 68 bpm. HR at 40 bpm was at 04:37. 3. There are 163 premature supraventricular complexes and 52 supraventricular couplets. No supraventricular tachycardia. 4. No premature ventricular complexes. No ventricular tachycardia. 5. No sinoatrial or atrioventricular blocks. No significant pauses greater than 2 seconds. 6. Patient reports symptoms of dizziness which demonstrate sinus rhythm, HR range 66-71 bpm.
== END 2023-09-09 09:20 | disposition home or self-care (01) ==
LOC: CHSCARD 09:20
PROVIDERS: PCP Family Medicine; Visit Provider Family Medicine
DX: R55 Syncope and collapse (principal)
CPT/HCPCS: 93005; 93225; 93226

== ENCOUNTER 2023-10-12 13:58 | Outpatient (CLI) | payer OTHER, SELFPAY ==
--- NOTE | 2023-10-12 14:06 | ECHO_ITS ---
Patient Info Name: Lynn Childers Age: 28 years : 1995 Gender: Female Ht: 64 in Wt: 135 lbs BSA: 1.67 m2 HR: 68 bpm BP: 117 / 68 mmHg Heart Rhythm: Sinus Rhythm Technical Quality: Good Exam Date: 10/12/2023 3:10 PM Exam Location: Echo Lab Patient Status: Outpatient Admit Date: 10/12/2023 Staff Ordering Physician: ElaChan MD Developmental Education Instructor: Garret Castillo RDCS Attending Provider: ShiraChan MD Exam Type: CA echo doppler color flow Study Info Indications - syncope Complete two-dimensional, color flow and Doppler transthoracic echocardiogram is performed. Summary 1. Complete two-dimensional, color flow and Doppler transthoracic echocardiogram is performed. 2. Left ventricular chamber dimension is normal. 3. Left ventricular systolic function is normal, estimated at 60-65%. 4. The left ventricular diastolic function is normal. 5. E/e' 7 is not elevated. 6. There is trace tricuspid valve regurgitation. 7. No pulmonary hypertension, estimated pulmonary arterial systolic pressure is 13 mmHg. Left Ventricle E/e' 7 is not elevated. Left ventricular chamber dimension is normal. Left ventricular systolic function is normal, estimated at 60-65%. The left ventricular diastolic function is normal. Right Ventricle Right ventricular systolic function is normal and with normal TAPSE 2.1 cm. Right ventricular chamber dimension is normal. Left Atria Left atrial chamber dimension is normal. Right Atria Right atrial chamber dimension is normal. Aortic Valve The aortic valve is trileaflet. There is no aortic valve stenosis. There is no aortic valve regurgitation. Pulmonic Valve There is no pulmonic regurgitation. Mitral Valve There is no mitral valve stenosis. There is no mitral valve regurgitation. Tricuspid Valve There is trace tricuspid valve regurgitation. No pulmonary hypertension, estimated pulmonary arterial systolic pressure is 13 mmHg. Pericardium/Pleural There is no pericardial effusion. Inferior Vena Cava Normal inferior vena cava with >50% collapse upon inspiration consistent with normal right atrial pressure, 5 mmHg. Aorta The aortic root size at the sinus of Valsalva is normal. Left Ventricular Outflow Tract Name Value Normal LVOT 2D LVOT Diameter 1.8 cm LVOT Doppler LVOT Peak Velocity 93 cm/s LVOT Peak Gradient 3 mmHg LVOT Mean Gradient 2 mmHg LVOT VTI 21 cm LVOT VTI/AV VTI Ratio 1.2 LVOT Stroke Volume 57 ml Pulmonic Valve Name Value Normal RVOT Doppler RVOT Peak Gradient 1 mmHg PV Doppler PV Peak Velocity 86 cm/s PV Peak Gradient 3 mmHg Mitral Valve
== END 2023-10-12 13:59 | disposition home or self-care (01) ==
LOC: CHSIMG 14:02
PROVIDERS: PCP Family Medicine; Visit Provider Family Medicine
DX: R55 Syncope and collapse (principal)
CPT/HCPCS: 93306

== ENCOUNTER 2025-02-14 13:19 | Outpatient (CLI) | payer OTHER, SELFPAY ==
--- NOTE | ~2025-02-14 | US_ITS ---
EXAMINATION: US soft tissue UE RT DATE: 02/14/2025 13:45 INDICATION: Palpable lump at the base of the right thumb TECHNIQUE: Multiple grayscale and Doppler ultrasound images of the region of concern at the base of t he right thumb were obtained. COMPARISON: None FINDINGS: Palpable abnormality of concern corresponds to a 1.3 x 1.3 x 1.0 cm anechoic cystic lesion without in ternal vascular flow no surrounding hyperemia on color Doppler. There is a narrow neck extending deep er towards one of the underlying joint spaces consistent with a ganglion cyst. No abnormal soft tissu e masses identified. IMPRESSION: 1. The palpable abnormality corresponds to a 1.3 cm likely ganglion cyst. Reviewed, dictated and finalized at location B.
--- OUTSIDE RECORDS SUMMARY | 2025-02-14 13:24 | XMS_ITS | Clinical Summary ---
Author Organization [facility] Address [address] [place] [id number] Care Team Providers Care Sr Technical Sales Consultant Name Role Phone None, Provider Primary Care Provider Unavaila ble Allergies Active Allergy Reactions Criticality Noted Date Comments Penicillins Unknown 12/06/2020 Medications No known medications Social History Tobacco Use Types Packs/Day Years Used Date Smoking Tobacco: Every Day Smokeless Tobacco: Never Comments No Sex and Gender Information Value Date Recorded Sex Assigned at Not on file Legal Sex Female 4:03 PM CDT Gender Identity Not on file Sexual Orientation Not on file Last Filed Vital Signs Vital Sign Reading Time Taken Comments Blood Pressure 112/76 12/06/2020 8:00 PM CDT Pulse 76 12/06/2020 4:52 PM CDT Temperature 37.1 C (98.7 F) 12/06/2020 7:48 PM CDT Respiratory Rate 18 12/06/2020 4:52 PM CDT Oxygen Saturation 97% 12/06/2020 8:00 PM CDT Inhaled Oxygen Concentration - - Weight 61.5 kg (135 lb 9.3 oz) 12/06/2020 4:52 P M CDT Height 162.6 cm (5' 4) 12/06/2020 4:52 PM CDT Body Mass Index 23.27 12/06/2020 4:52 PM CDT Plan of Treatment Health Maintenance Due Date Last Done Comments Cervical Cancer Screening Pa p Smear (Age 30 to 64) Every 3 Years 1993 Annual Physical 1996 Hepatitis C 2011 Hepatitis B Vaccines (1 of 3 - 19+ 3-dose series) 2012 Pneumococcal Vaccine: Pediat rics (0 to 5 Years) and At-Risk Patients (6 to 49 Years) (1 of 2 - PCV) 2012 Cervical Cancer Screening Pa p with HPV Testing (Age 30 to 64) Every 5 Years 2023 Cervical Cancer Screening with HPV 2023 COVID-19 Vaccine (1 - 2023-2 5 season) 2024 DTaP, Tdap and Td Vaccines ( 2 - Td or Tdap) 08/02/2025 08/02/2015 HPV Vaccines Aged Out No longer eligi ble based on patient's age to complete this topic Meningococcal B Vaccine Aged Out No l onger eligible based on patient's age to complete this topic Meningococcal Vaccine Aged Out No marielena christa eligible based on patient's age to complete this topic RSV Immunizations Under 20 Months Aged Out No longer eligible based on patient's age to complete this topic Insurance [facility] [address] Care Teams Sr Technical Sales Consultant Relationship Specialty Start Date End Date None, Provider, PCP - General 12/06/20
--- OUTSIDE RECORDS SUMMARY | 2025-02-14 13:24 | XMS_ITS | Data Portability ---
Author Organization [facility], [place] Address [address] [place] [address] Assessment Encounter Date Assessment Date Assessment LastModified by Organization Details LastModified Time 10/17/2022 10/17/2022 Normal incision check at 1 week pp continue modified activities as tolerated continue vitamins support given, will call if mood worsens, denies depression. s/p salpingectomy, no BC needed Precautions given FU for 4 week exam Not available 10/17/2022 13:56:18 11/05/2022 11/05/2022 Normal exam May resume normal activities contraceptive plan--s/p salpingectomy FU for WWE Aug [email or web address] Not available 11/10/2022 17:48:53 12/09/2022 12/09/2022 extremely small seroma around absorbable staple kim at skin surface removed precautions given no signs of infection FU WWE [email or web address] Not available 12/09/2022 14:39:05 Plan of Treatment Reminders Order Date Submit Date Provider Last Modified By Organization Details Last Modified Time Details Appointments None record ed. Lab None record ed. Referral None record ed. Procedures None record ed. Surgeries None record ed. Imaging None record ed. Medication Orders None record ed. Patient TargetsNo targets recorded. Patient InstructionsNo instructions recorded. Reason for Referral None Reported. Results Created Date Observation Date Name Description Value Unit Range Abnormal Flag Note LastModifiedBy Organization Detail LastModifiedTime 10/03/19 23 10/03/2022 CULTU RE: GROUP B STREP SCREE N, REFLE X SUSCE PTIBI LITY result report SEE RESULT S BELOW Test: Cultu re: Group B Strep , Refle x Susce ptibi lity ([facility]/ [facility]/K [facility] ) Speci men Sourc e: Vagin a/Rec yassine Speci men Type: Vagin al/Re ctal Speci men Date: 2022 3:13 PM Resul t Date: 2022 2:01 PM Resul t Statu s: Final resul t Abnor mal: No Resul ting Lab: [facility] [address] [facility] [address] Tel: CULTU RE ----- ----- ----- --- No Group B strep isola joaquin at 2 days (steven ctive broth enhan cemen t) Not Available [facility] (Lab) [address], [place], [address], 10/06/2022 15:05:12 Result Notes None recorded. Problems Name Problem SNOMED Code Status Onset Date Resolution Date Notes Provider Name and Address Organization Details Recorded Time Pregnanc y 88374836 Completed 202112/01/2022 [facility] 3 16:10:32 Steriliz ation requeste d 740018251 Active salpinge ctomy with CS [facility] 3 16:10:27 Tobacco user 350646888 Active [facility] 3 16:10:27 Past pregnanc y history of section 535454973 Active x2, to do repeat 39w [facility] 3 16:10:27 RhD negative 421189388 Active [facility] 3 16:10:27 Genital herpes simplex 22527761 Active valtrex at 35-36 [facility] 3 16:10:27 Steriliz ation requeste d 048737903 Completed [facility] 16:10:27 Tobacco user 437828476 Completed Sloane Hough [facility] 3 16:10:27 Past pregnanc y history of section 404874248 Completed x2, to do repeat 39w Sloane Hough [facility] 3 16:10:27 RhD negative 582714325 Completed [facility] 3 16:10:27 Genital herpes simplex 02788099 Completed valtrex at 35-36 [facility] 3 16:10:27 Placenta circumva llata 8600066 Completed serial growth u[facility] 16:10:27 Low lying placenta 233336803 Completed 1.5cm at 28w, repeat 4w RESOLVED [facility] 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 3 16:10:27 Mass of right breast 71841731267 425486 Completed BI-RADS 3 - To send referral for breast speciali st 07/28/22 [facility] 3 16:10:27 Problem Notes None recorded. Procedures Surgical History Date Name Laterality Status Provider Name and Address Organization Details Recorded Time 10/10/19 23 SALPINGECTOMY (SURG) completed Gayle Kent [facility] 10/13/2022 10:55:41 04/02/20 22 Date of Last Pap Smear completed Lyn Desai [facility] 04/02/2022 16:32:12 01/29/20 21 [facility] 04/02/2022 16:31:32 10/26/19 16 Caesarean Section completed [facility] 04/02/2022 16:37:44 11/02/19 13 section completed [facility] 04/02/2022 16:37:57 Imaging Results None recorded. Procedure Notes None recorded. Medical Equipment None Reported. Allergies Allergen ID Allergen Name Allergen Category Reaction Reaction Severity Criticality Documentation Date Start Date Code Code System Note Provider Name and Address Organization Details Recorded Time 20232 Product containin g penicilli n (product) medicatio n facial swelling severe Not available 04/02/2022 00065 8001 SNOMED [facility] 16:31:31 Medications Name Sig Start Date Stop Date Status Note LastModified by Organization Details LastModified Time clindamycin HCl 300 mg capsule TAKE 1 CAPSULE BY MOUTH THREE TIMES A DAY active Not Available Not Available No t Available valacyclovir 1 gram tablet TAKE 1 TABLET BY MOUTH EVERY DAY 11/05 completed Not Available Not Available Not Available hydrocodone 5 mg-acetamino phen 325 mg tablet TAKE 1 TABLET BY MOUTH EVERY 4 TO 6 HOURS NEEDED 11/05 completed Not Available Not Available Not Available acetaminophe n 300 mg-codeine 30 mg tablet TAKE 1 TABLET BY MOUTH EVERY 6 HOURS NEEDED FOR PAIN 04/02 completed Not Available Not Available Not Available Daily 28 mg-800 mcg-440 mg oral pack active Not Available Not Available No t Available potassium chloride ER 20 mEq tablet,exten ded release TAKE 1 TABLET BY MOUTH EVERY DAY 11/05 completed Not Available Not Available Not Available Vitals Date Recorded Body height Body mass index (BMI) Body weight Systolic blood pressure Diastolic blood pressure Provider Name and Address Organization Details Last Updated DateTime 10/03/2022 163.83 cm 27.9 kg/m2 33809.74 105 g 107 mm[Hg] 67 mm[Hg] [facility] 14:30:04 Date Recorded Body height Body mass index (BMI) Systolic blood pressure Diastolic blood pressure Provider Name and Address Organization Details Last Updated DateTime 10/17/2022 163.83 cm 25.2 kg/m2 122 mm[Hg] 84 mm[Hg] [facility] 10/17/2022 12:50:29 Date Recorded Body weight Provider Name an d Address Organization Details Last Updated DateTime 10/17/2022 [phone] [facility] 12/01/2022 16:10:31 Date Recorded Body height Body mass index (BMI) Systolic blood pressure Diastolic blood pressure Provider Name and Address Organization Details Last Updated DateTime 11/05/2022 163.83 cm 24.2 kg/m2 113 mm[Hg] 71 mm[Hg] [facility] 11/05/2022 12:23:48 Date Recorded Body weight Provider Name an d Address Organization Details Last Updated DateTime 11/05/[phone] alyse [facility] 12/01/2022 16:10:31 Date Recorded Body height Body mass index (BMI) Body weight Systolic blood pressure Diastolic blood pressure Provider Name and Address Organization Details Last Updated DateTime 12/09/2022 163.83 cm 23.2 kg/m2 95883.15 g 118 mm[Hg] 60 mm[Hg] [facility] 10:13:00 Social History Question Answer Notes LastModified by Organizat ion Details LastModified Time Tobacco Smoking Status Current Every Day Smoker Jono miguel [facility] 12/09/2022 09:47:57 Do You Have An Advance Directive? No [email or web address] Information not available 04/02/2022 If You Are , What Was Your Level Of Alcohol Consumption Prior To ? Occasional [email or web address] Information not available 12/09/2022 Are You Blind Or Do You Have Difficulty Seeing? No [email or web address] Information not available 04/02/2022 What Is Your Level Of Caffeine Consumption? Heavy [email or web address] Information not available 04/02/2022 How Much Tobacco Do You Chew? None [email or web address] Information not available 04/02/2022 In The 14 Days Before Symptom Onset, Have You Had Close Contact With A Laboratory-confir med COVID-19 While That Case Was Ill? No [email or web address] Information not available 04/02/2022 In The 14 Days Before Symptom Onset, Have You Had Close Contact With A Person Who Is Under Investigation For COVID-19 While That Person Was Ill? No [email or web address] Information not available 04/02/2022 Have You Been To An Area Known To Be High Risk For COVID-19? No [email or web address] Information not available 04/02/2022 Are You Deaf Or Do You Have Serious Difficulty Hearing? No [email or web address] Information not available 04/02/2022 What Type Of Diet Are You Following? REGULAR [email or web address] Information not available 04/02/2022 What Is The Highest Grade Or Level Of School You Have Completed Or The Highest Degree You Have Received? HR14481-3 [email or web address] Information not available 04/02/2022 Are There Any Guns Present In Your Home? No [email or web address] Information not available 04/02/2022 Do You Use Protection During Sex? No [email or web address] Information not available 07/24/2022 Do You Use Your Seat Belt Or Car Seat Routinely? Yes [email or web address] Information not available 04/02/2022 Do You Have Smoke And Carbon Monoxide Detectors In Your Home? Yes [email or web address] Information not available 04/02/2022 At What Age Did You Start Smoking Tobacco? 13 [email or web address] Information not available 04/02/2022 How Much Tobacco Do You Smoke? 1 PPD [email or web address] Information not available 04/02/2022 Do You Use Sunscreen Routinely? No [email or web address] Information not available 04/02/2022 Has Tobacco Cessation Counseling Been Provided? No [email or web address] Information not available 12/09/2022 How Many Years Have You Smoked Tobacco? 13 [email or web address] Information not available 04/02/2022 Have You Used IV Drugs? No [email or web address] Information not available 04/02/2022 Do You Have Difficulty Walking Or Climbing Stairs? No [email or web address] Information not available 12/09/2022 Sex: Unknown Functional Status Question Answer Note LastModified by Organizat ion Details LastModified Time Do you use any illicit or recreational drugs? Yes weed [email or web address] Information not available 04/02/2022 Do you or have you ever used any other forms of tobacco or nicotine? No [email or web address] Information not available 12/09/2022 What is your level of alcohol consumption? None [email or web address] Information not available 04/02/2022 Are you able to walk? YESWOREST [email or web address] Information not available 04/02/2022 Are you able to care for yourself? 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 No [email or web address] Information not available 12/09/2022 What is your exercise level? Occasional [email or web address] Information not available 04/02/2022 Mental Status Question Answer Note LastModified by Organization D etails LastModified Time Do you feel stressed (tense, restless, nervous, or anxious, or unable to sleep at night)? [id number] [email or web address] Information not available 07/24/2022 Family History Relationship Description Onset Age of this Age Resolved Age Notes LastModified by Organization Details LastModified Time Unspecified Relation Family history unknown Not available 04/02 16:31:32 Father No current problems or disability [email or web address] Not available 12/09 09:47:57 Mother No current problems or disability [email or web address] Not available 12/09 09:47:57 Medical History Condition Response Allergies (Food, seasonal, environmental ) N Other N Breast Cancer N Drug/Latex Allergies/Reactions Y Blood Transfusion N Dermatologic Disorders N Lung Disease N Defects or Inherited Disease N Breast Problem N Gestational Diabetes N Hematologic disorders N Anesthesia Complications N History of STI Y Deep Vein Thrombosis N Polycystic ovary syndrome N Anxiety Disorder N Autoimmune disease N Arthritis N Infertility N Polyps N Acid Reflux (GERD) N History of abnormal pap N Cancer N Stroke N Varicosities N Neurologic/Epilepsy N Endometriosis N High Cholesterol N Headaches N Fibromyalgia N Kidney Disease N Heart Problems N Kidney or Bladder Problems N Thyroid Problems N GI Problems N Eating Disorder N Anemia N Art (IVF or FET) N Psychiatric Illness N Ovarian Cancer N Diabetes N Pulmonary (TB, Asthma) N Hepatitis/Liver Disease N No Past Medical History N Eczema N Urinary Tract Infection N Abuse/Domestic Violence N Asthma N Trauma/Violence N Depression/ depression N Heart Disease N Pre-Eclampsia N Hypertension N Osteoporosis N Thrombophilias N Gynecological History Statement/Question Response Abnormal Pap N Date of Last Mammogram Date of LMP N STIs/STDs Yes Was last menstrual period normal N Current Control Method Age at First Child 17 Date of control 10/08/2021 Sexually Active? Y Date of DEXA bone scan Date of Last Pap Smear 04/02/2022 Sexual Problems? N LMP Unknown 01/28/2021 N Obstetrics History GPAL:G 3 P 3 0 0 3 Type Value Full Term 3 Living 3 Total 3 Past Encounters Encounter ID Performer Location Encounter Start Date Encounter Closed Date Diagnosis/Indication Diagnosis SNOMED-CT Code Diagnosis ICD10 Code Diagnosis Note [id number] Grisel Childers MD [place] [address],[facility] [place] [address] 04/02/2022 15:15:37 04/02/2022 17:11:54 screening 735484330 Z36.82 [id number] Chen Magaña [facility] [address],[place] [address] 04/02/2022 15:16:09 04/02/2022 17:10:43 test positive 869310982 Z32.01 [id number] Grisel Childers MD [place] [address],[facility] [place] [address] 04/30/2022 15:06:49 05/02/2022 11:12:18 Routine care 206667916 Z34.91 Past pregn caleb history of section 163771527 Z98.890 Genital he rpes simplex 21735896 A60.9 RhD negative 615846241 Z 01.83 Sterilizat ion requested 373253863 Z30.2 Tobacco user 159010351 Z 72.0 [id number] Grisel Childers MD [place] [address],[place] [address] 05/30/2022 11:15:07 05/30/2022 11:48:51 Routine care 044976631 Z34.91 RhD negative 955767973 Z 01.83 [id number] MD Noris Kathleen [address],[place] [address] 06/03/2022 15:16:28 06/03/2022 17:17:30 screening for malformation 168944270 Z36.3 [id number] MD Noris Kathleen [address],[place] [address] 06/26/2022 10:22:39 06/26/2022 11:05:11 screening 439851818 Z36.2 O44.40 O43.112 Z3A.23 [id number] MD Noris Kathleen [address],[place] [address] 06/27/2022 14:45:45 06/28/2022 09:42:30 Routine care 993020061 Z34.91 Tobacco user 843798874 Z 72.0 [id number] Bobbi Girard [facility] [address],[place] [address] 07/24/2022 10:14:09 07/24/2022 13:10:23 Routine care 595654183 Z34.92 [id number] Grisel Childers MD [place] [address],[place] [address] 07/24/2022 10:14:37 07/24/2022 11:10:36 Placenta circumvallata 2568978 O43.112 O44.40 Z3A.27 [id number] MD Noris Kathleen [address],[place] [address] 08/22/2022 10:06:42 08/22/2022 13:44:06 Placenta circumvallata 5196536 O43.112 O44.40 Z3A.32 [id number] MD Noris Kathleen [address],[place] [address] 08/22/2022 10:50:12 08/22/2022 14:17:11 Past history of section 426503590 Z98.890 Sterilizat ion requested 979748416 Z30.2 [id number] Grisel Childers MD [place] [address],[place] [address] 09/08/2022 11:39:39 09/08/2022 12:10:21 Routine care 455485557 Z34.91 Genital he rpes simplex 72542627 A60.9 [id number] Bobbi Girard [facility] [address],[place] [address] 09/22/2022 12:18:42 09/22/2022 17:55:55 [id number] Bobbi Girard [facility] [address],[place] [address] 09/23/2022 14:07:03 09/23/2022 14:54:52 Routine care 784307112 Z34.92 [id number] Grisel Childers MD [place] [address],[place] [address] 10/03/2022 14:20:32 10/03/2022 15:02:09 Past history of section 421917352 Z98.890 Sterilizat ion requested 288059126 Z30.2 Genital he rpes simplex 91786977 A60.9 [id number] Grisel Childers MD [place] [address],[place] [address] 10/17/2022 12:45:38 10/17/2022 14:15:24 Postoperative visit 951093829 Z09 [id number] MD Janel [place] [address],[place] [address] 11/05/2022 12:15:07 11/06/2022 15:05:16 care 741423656 Z39.2 [id number] Grisel Childers MD [place] [address],[place] [address] 12/09/2022 09:47:53 12/09/2022 15:07:32 Wound seroma 320970512 T88.8XXA extremely small Health Concerns Section Related Observation LastModified by Organization Detai ls LastModified Time None Recorded Concern Status LastModified by Organization Details LastModified Time None Recorded Advance Directives Directive N: Payers Insurance Date Sequence Insurance Name Policy Number Policy Lares Covered Member ID Lares Member ID Guarantor Name 12/08/2022 1 [facility] - DOS ON OR AFTER 21 (MEDICAID REPLACEMENT - HMO) [id number] Lynn Childers [id number] Lynn Childers Notes Date Note Type Note Provider Name and Address Organization Details Recorded Time 10/17/2022 text/html Patient is a 27y o presenting for a 1 week visit for incision check. She had a R CS with salpingectomy at 39 weeks [place]. Baby Magdalena was 6-10 and is doing great. didn't work out again and she has been upset about this. Fairly emotional, but also stopped smoking 6 days ago, and denied depression. Doing well overall. bottlefeeding. Normal lochia. Pain- minimal. Bowel and bladder function normal. [place] score 5 Concerns: none Grisel Childers MD [address], [place], [address], [facility] 10/17/2022 13:57:28 11/05/2022 text/html Patient is a 27yo presenting for a 4 week visit. She had a R CS and salpingectomy 10/10 at 39 weeks GA. Baby Magdalena was 6-10. She is still not smoking. Her mood is so much better. Doing well overall. Normal lochia. Pain- none except still some carpal tunnel. Bowel and bladder function normal. Period-no Annual due:Mar Concerns: none Grisel Childers MD [address], [place], [address], [facility] 11/10/2022 17:49:22 12/09/2022 text/html Here 8+ weeks s/ p R Cs c/o small amount of yellow drainage from right side of incision last few days. white thing sticking out. No increased pain. no fevers. not like pus. no bleeding. Grisel Childers MD [address], [place], [address], [facility] 12/09/2022 14:39:16 OBGyn Episode Ob Episode Information Episode Created Date Number of Fetuses Patient Bloodtype Patient rh Status Prepregnancy Weight lbs Domestic Partner Domestic Partner Phone Father Name Service Center Appraiser Status 04/30/20 22 1 126 CLOSED Fetus Data First Name Last Name Admitted to NICU Weight (g) Sex Living Outcome Pediatric Complications Fetus ID Race Codes Race Delivery Type Jaylin n 3005.04 7 F true Full Term [id number] Repeat Problems Problem Notes [place]varado pt, Problem Name Start Date End Date Resolution Snomed Code Not e Sterilization requested 089667532 salpingectomy with CS Tobacco user 870625943 Past history of section 008150399 x2, to do r epeat 39w RhD negative 538384751 Genital herpes simplex 85627336 valtrex at 35-3 6 Anomaly of placenta 25835050 bilobed vs accessory lobe Placenta circumvallata 3711464 serial growth u/s Low lying placenta SELFRESOLVED 49290053 7 1.5cm at 28w, repeat 4w RESOLVED Mass of right breast 91684323015056194 BI-RADS 3 - To send referral for breast specialist 07/28/22 Aneesh Calculation Initial Aneesh Date Initial Exam Date Initial Exam Provider Initial Ultrasound Date Last Menstrual Period Date Ultra Sound Weeks Gestation 10/17/2022 04/30/2022 04/02/2022 11 Eighteen To Twenty Week Aneesh Update Ultra Sound Date Fundal Height At Umbil Quickening Date Ultra Sound Latest Weeks Gestation Final Aneesh Confirmed By Final Aneesh Confirmed Date Final Aneesh Date Ultra Sound Latest Days Gestation 0 04/30/2022 10/18/19 23 0 Pre- Flowsheet Flowsheet Date 04/30/2022 Haley Score Blood Edema Fundus Height Fundus Units Glucose Ketones Leukocytes Nitrite Labor Signs Protein Cervic Dilation Cervic Effacement Cervic Station neg none none trace Type Weight in lbs Pre/Post Dialysis Refused Weight 130.958778176721 BP Diastolic BP Location Tested BP Systolic BP Type 64 99 Fetus Heart Rate Present A 145 Fetus Movement A No Comments Lynn is a 26yo at 15.5 for care. She has had 2 prior CS at [facility] and plans a repeat. She is Rh neg. Smokes tobacco and is down to 1/2ppd from 1ppd. She also uses MJ and I encouraged cessation. She had genital herpes and we discussed risks and suppression with valtrex at 36w. She had low risk NIPT. SHe desires salpingectomy with her R CS. Anatomy US next visit. Flowsheet Date 05/30/2022 Haley Score Blood Edema Fundus Height Fundus Units Glucose Ketones Leukocytes Nitrite Labor Signs Protein Cervic Dilation Cervic Effacement Cervic Station neg none none trace Type Weight in lbs Pre/Post Dialysis Refused Weight 134.017881290344 BP Diastolic BP Location Tested BP Systolic BP Type 66 101 Fetus Heart Rate Present A 145 Fetus Movement A Yes Comments Doing well, lots of FM. Wandy abran US next week. Down to 5 cig per day, will pick a quit day. Give Rhogam orders next visit, discussed. Flowsheet Date 06/03/2022 Haley Score Blood Edema Fundus Height Fundus Units Glucose Ketones Leukocytes Nitrite Labor Signs Protein Cervic Dilation Cervic Effacement Cervic Station Type Weight in lbs Pre/Post Dialysis Refused BP Diastolic BP Location Tested BP Systolic BP Type Fetus Heart Rate Present Fetus Movement Comments Flowsheet Date 06/26/2022 Haley Score Blood Edema Fundus Height Fundus Units Glucose Ketones Leukocytes Nitrite Labor Signs Protein Cervic Dilation Cervic Effacement Cervic Station Type Weight in lbs Pre/Post Dialysis Refused BP Diastolic BP Location Tested BP Systolic BP Type Fetus Heart Rate Present Fetus Movement Comments Flowsheet Date 06/27/2022 Haley Score Blood Edema Fundus Height Fundus Units Glucose Ketones Leukocytes Nitrite Labor Signs Protein Cervic Dilation Cervic Effacement Cervic Station neg none none trace Type Weight in lbs Pre/Post Dialysis Refused Weight 139.294466924532 BP Diastolic BP Location Tested BP Systolic BP Type 65 104 Fetus Heart Rate Present A 155 Fetus Movement A Yes Comments Doing well. GCT next visit. Growth next visit for circumvallate placenta and low lying placenta. Smoking quit date 07/28, but hasn't really started cutting down yet. Discussed ideas. Discuss Tdap next visit. Ask re flu shot next visit. Flowsheet Date 07/24/2022 Haley Score Blood Edema Fundus Height Fundus Units Glucose Ketones Leukocytes Nitrite Labor Signs Protein Cervic Dilation Cervic Effacement Cervic Station neg none none trace Type Weight in lbs Pre/Post Dialysis Refused Weight 147.147744217413 BP Diastolic BP Location Tested BP Systolic BP Type 62 100 Fetus Heart Rate Present Fetus Movement A Yes Comments Doing well. 1 hour gtt last week. 133. Today on ultrasound mild poly noted. I would like for pt to do a 3 hour gtt. Will do within 1 week. Encouraged flu and tdap. Flowsheet Date 07/24/2022 Haley Score Blood Edema Fundus Height Fundus Units Glucose Ketones Leukocytes Nitrite Labor Signs Protein Cervic Dilation Cervic Effacement Cervic Station Type Weight in lbs Pre/Post Dialysis Refused BP Diastolic BP Location Tested BP Systolic BP Type Fetus Heart Rate Present Fetus Movement Comments Doing well. Flowsheet Date 08/22/2022 Haley Score Blood Edema Fundus Height Fundus Units Glucose Ketones Leukocytes Nitrite Labor Signs Protein Cervic Dilation Cervic Effacement Cervic Station Type Weight in lbs Pre/Post Dialysis Refused BP Diastolic BP Location Tested BP Systolic BP Type Fetus Heart Rate Present Fetus Movement Comments Flowsheet Date 08/22/2022 Haley Score Blood Edema Fundus Height Fundus Units Glucose Ketones Leukocytes Nitrite Labor Signs Protein Cervic Dilation Cervic Effacement Cervic Station 31 Type Weight in lbs Pre/Post Dialysis Refused Weight 150.585771756238 BP Diastolic BP Location Tested BP Systolic BP Type 64 103 Fetus Heart Rate Present A 140 Fetus Movement Comments Doing fine. Will do flu and Tdap. Missed appt due to husbands MS [employer]. [employer] resolved, has anterior accessory lobe. EFW 47%. Still smoking 1/2ppd. Will schedule CS and salpingectomy for 10/10. Flowsheet Date 09/08/2022 Haley Score Blood Edema Fundus Height Fundus Units Glucose Ketones Leukocytes Nitrite Labor Signs Protein Cervic Dilation Cervic Effacement Cervic Station neg trace 35 none trace Type Weight in lbs Pre/Post Dialysis Refused Weight 156.945516286167 BP Diastolic BP Location Tested BP Systolic BP Type 60 96 Fetus Heart Rate Present A 145 Fetus Movement A Yes Comments DOing well, just a little ba ck pain. Doing flu and Tdap this week. Valtrex sent, will start in about a week. CS and salpingectomy scheduled. Flowsheet Date 09/22/2022 Haley Score Blood Edema Fundus Height Fundus Units Glucose Ketones Leukocytes Nitrite Labor Signs Protein Cervic Dilation Cervic Effacement Cervic Station Type Weight in lbs Pre/Post Dialysis Refused BP Diastolic BP Location Tested BP Systolic BP Type Fetus Heart Rate Present Fetus Movement Comments Flowsheet Date 09/23/2022 Haley Score Blood Edema Fundus Height Fundus Units Glucose Ketones Leukocytes Nitrite Labor Signs Protein Cervic Dilation Cervic Effacement Cervic Station neg trace 36 none trace Type Weight in lbs Pre/Post Dialysis Refused Weight 160.046179975475 BP Diastolic BP Location Tested BP Systolic BP Type 63 100 Fetus Heart Rate Present A 145 Fetus Movement A Yes Comments Doing well. TDAP done on 09/23. No contractions. Started valtrex. No s/s of outbreak. Labor precautions discussed. C/S scheduled. Flowsheet Date 10/03/2022 Haley Score Blood Edema Fundus Height Fundus Units Glucose Ketones Leukocytes Nitrite Labor Signs Protein Cervic Dilation Cervic Effacement Cervic Station neg trace 37 none trace Type Weight in lbs Pre/Post Dialysis Refused Weight 165.753204495670 BP Diastolic BP Location Tested BP Systolic BP Type 67 107 Fetus Heart Rate Present A 145 Fetus Movement A Yes Comments Doing well. Great FM. Rare c ontractions. CS in one week, discussed and consented, questions answered. GBS done. Still wants salpingectomy for sterilization. Precautions given. Flowsheet Date 10/10/2022 Haley Score Blood Edema Fundus Height Fundus Units Glucose Ketones Leukocytes Nitrite Labor Signs Protein Cervic Dilation Cervic Effacement Cervic Station Type Weight in lbs Pre/Post Dialysis Refused BP Diastolic BP Location Tested BP Systolic BP Type Fetus Heart Rate Present Fetus Movement Comments Flowsheet Date 10/17/2022 Haley Score Blood Edema Fundus Height Fundus Units Glucose Ketones Leukocytes Nitrite Labor Signs Protein Cervic Dilation Cervic Effacement Cervic Station Type Weight in lbs Pre/Post Dialysis Refused Weight 149.453955152366 BP Diastolic BP Location Tested BP Systolic BP Type 84 122 Fetus Heart Rate Present Fetus Movement Comments Flowsheet Date 11/05/2022 Haley Score Blood Edema Fundus Height Fundus Units Glucose Ketones Leukocytes Nitrite Labor Signs Protein Cervic Dilation Cervic Effacement Cervic Station Type Weight in lbs Pre/Post Dialysis Refused Weight 143.770430174687 BP Diastolic BP Location Tested BP Systolic BP Type 71 113 Fetus Heart Rate Present Fetus Movement Comments Menstrual History Last Menstrual Date Menses Monthly On Bcp Conception Prior Menses Frequency Hcg Plus Date Menarche Onset Age Genetic Screening And Infection History Question Response Note Mental Retardation/Autism false Patient's Age Will Be 35 Years Or Older At Estim ated Date of Delivery false Thalassemia (Sinhala, [place] Islander, Mediterranean, Or Background): MCV < 80 false Neural Tube Defect (Meningomyelocele, Spina Bifi da, Or Anencephaly) false Congenital Heart Defect false Down Syndrome false Kenneth-Sachs (eg, U[place]din, Cajun, Maldivian-Jennings) f alse Krystal Disease false Sickle Cell Disease Or Trait () false Hemophilia Or Other Blood Disorders false Muscular Dystrophy false Cystic Fibrosis false Jovanna's Chorea false Intellectual Disability/Autism false If Yes, Was Person Tested For Fragile X? false Other Inherited Genetic Or Chromosomal Disorder false Maternal Metabolic Disorder (eg, Type 1 Diabetes , PKU) false Patient Or Baby's Father Had A Child With Defects Not Listed Above false Recurrent Loss, Or A Stillbirth false Medications (including Suppl ements, Vitamins, Herbs, OTC Drugs), Illicit/Recreational Drugs, Alcohol false If Yes, Agent(s) And Strength/Dosage false Any Other Genetic History false Live With Someone With TB Or Exposed To TB false Patient Or Partner Has History Of Genital Herpes false Rash Or Viral Illness Since Last Menstrual Perio d false History Of STD, Gonorrhea, Chlamydia, HPV, Syphi lis false hsv Other Infection History false History of HIV false History of Hepatitis false Prior GBS-infected child false Hemoglobinopathy Or Carrier false Other Structural Defect false Recent Travel History Outside of Country false Delivery Information Delivery Date Delivery Type Labor Anesthesia Weeks Gestation Incision Type Labor Labor Length Hrs Delivered By Post Complications Tubal Sterilization Discharge Date Comments 3 None [facility] inal 39 Low Transvers e false Grisel Childers MD true Anomaly of placenta, placenta circumval alma delia, Rpt c/s & TL Discharge Information Feeding Method Contraceptive Method Maternal HG B and HCT Levels Ob Episode Information Episode Created Date Number of Fetuses Patient Bloodtype Patient rh Status Prepregnancy Weight lbs Domestic Partner Domestic Partner Phone Father Name Service Center Appraiser Status 04/02/20 22 1 CLOSED Fetus Data First Name Last Name Admitted to NICU Weight (g) Sex Living Outcome Pediatric Complications Fetus ID Race Codes Race Delivery Type 2863.07 2704 M Full Term [id number] Repeat Aneesh Calculation Initial Aneesh Date Initial Exam Date Initial Exam Provider Initial Ultrasound Date Last Menstrual Period Date Ultra Sound Weeks Gestation 0 Eighteen To Twenty Week Aneesh Update Ultra Sound Date Fundal Height At Umbil Quickening Date Ultra Sound Latest Weeks Gestation Final Aneesh Confirmed By Final Aneesh Confirmed Date Final Aneesh Date Ultra Sound Latest Days Gestation 0 0 Menstrual History Last Menstrual Date Menses Monthly On Bcp Conception Prior Menses Frequency Hcg Plus Date Menarche Onset Age Delivery Information Delivery Date Delivery Type Labor Anesthesia Weeks Gestation Incision Type Labor Labor Length Hrs Delivered By Post Complications Tubal Sterilization Discharge Date Comments 6 40 Discharge Information Feeding Method Contraceptive Method Maternal HG B and HCT Levels Ob Episode Information Episode Created Date Number of Fetuses Patient Bloodtype Patient rh Status Prepregnancy Weight lbs Domestic Partner Domestic Partner Phone Father Name Service Center Appraiser Status 04/02/20 22 1 CLOSED Fetus Data First Name Last Name Admitted to NICU Weight (g) Sex Living Outcome Pediatric Complications Fetus ID Race Codes Race Delivery Type 3061.74 6 M Full Term [id number] Primary Aneesh Calculation Initial Aneesh Date Initial Exam Date Initial Exam Provider Initial Ultrasound Date Last Menstrual Period Date Ultra Sound Weeks Gestation 0 Eighteen To Twenty Week Aneesh Update Ultra Sound Date Fundal Height At Umbil Quickening Date Ultra Sound Latest Weeks Gestation Final Aneesh Confirmed By Final Aneesh Confirmed Date Final Aneesh Date Ultra Sound Latest Days Gestation 0 0 Menstrual History Last Menstrual Date Menses Monthly On Bcp Conception Prior Menses Frequency Hcg Plus Date Menarche Onset Age Delivery Information Delivery Date Delivery Type Labor Anesthesia Weeks Gestation Incision Type Labor Labor Length Hrs Delivered By Post Complications Tubal Sterilization Discharge Date Comments 3 40 Discharge Information Feeding Method Contraceptive Method Maternal HG B and HCT Levels
--- OUTSIDE RECORDS SUMMARY | 2025-02-14 13:24 | XMS_ITS | Data Portability ---
Author Organization SIMÓN JOSEAnuj Napoles Address [address] [place] [id number] Assessment No assessment recorded. Plan of Treatment Reminders Order Date Submit Date Provider Last Modified By Organization Details Last Modified Time Details Appointments None recorded . Lab noninvas irina colorect al cancer DNA + occult blood screenin g, stool 2020 021 [employer] (Cologuard Orders Only), [address], [address], [place], [address], 2 07:25:10 urinalys is, dipstick 2020 021 fani In-Office Order, Internal Use Only DO Not Attach Compendium DO Not Attach Compendium, Do Not Delete/merge, [id number] 1 15:06:04 H pylori urea breath test, co2 infrared 2020 021 [facility], [address], [address], [place], [address], 1 16:24:37 pap, IG + HPV, cervical 2018 019 [facility], [address], [address], [place], [address], 9 07:05:53 pregnanc y test, urine 2018 019 fani In-Office Order, Internal Use Only DO Not Attach Compendium DO Not Attach Compendium, Do Not Delete/merge, [id number] 9 18:16:36 urinalys is, dipstick 2018 019 fani In-Office Order, Internal Use Only DO Not Attach Compendium DO Not Attach Compendium, Do Not Delete/merge, [id number] 9 18:16:36 bacteria l vaginosi s panel, vaginal 2018 019 [facility] (Centralized Electronic Ordering - All Locations), Patient Can Go To The Location Of Their Choice, [id number] 9 06:10:19 culture, vaginal/ rectal, streptoc occus group B 2018 019 [facility] (Centralized Electronic Ordering - All Locations), Patient Can Go To The Location Of Their Choice, [id number] 9 06:10:20 pregnanc y test, urine 2015 016 fani In-Office Order, Internal Use Only DO Not Attach Compendium DO Not Attach Compendium, Do Not Delete/merge, [id number] 6 19:06:56 culture, urine 2015 016 [facility], [address] [facility], [address], [place], [address], 6 06:13:04 urinalys is, dipstick 2015 016 fani In-Office Order, Internal Use Only DO Not Attach Compendium DO Not Attach Compendium, Do Not Delete/merge, [id number] 6 17:34:[address] referral 2020 021 JACK Bridges MD, [address] [facility], [facility] [address], [place], [address], 1 16:35:05 Procedures None recorded . Surgeries None recorded . Imaging None recorded . Medication Orders 28 mg iron-800 mcg tablet 2021 022 [facility] #[id number], [address], [place], [place], [id number], 2 10:56:38 dicyclom ine 10 mg capsule 2020 [facility] #96077, [address], [place], [place], [id number], 2 10:15:48 clarithr omycin 500 mg tablet 2020 [facility] #94717, [address], [place], [place], [id number], 10:15:42 omeprazo le 20 mg capsule, delayed release 2020 [facility] #24457, [address], [place], [place], [id number], 2 10:16:08 metronid azole 500 mg tablet 2020 [facility] #95197, [address], [place], [place], [id number], 2 10:16:03 Nexplano n 68 mg subderma l implant 2018 019 [email or web address] Not available 10:30:15 Zithroma x Z-Barry 250 mg tablet 2015 016 [facility] #48874, [address], [place], [place], [id number], 6 13:27:28 Patient TargetsNo targets recorded. Patient Instructions Encounter Date Encounter Id Patient Instructions Last Modified By Organization Details Last Modified Time 12/13/2020 [id number] irritable bowel syndrome: care instructions fani Not available 12/13/2020 15:06:04 H. pylori bacterial infection: care instructions mwasserman Not available 12/13/2020 15:06:04 Reason for Referral Outpatient Services Director Referral for Irritable bowel syndrome Referring Physician: Josh Meier, CHIEF TELEPHONE OPERATOR, Encounter Date: 12/13/2020 Results Created Date Observation Date Name Description Value Unit Range Abnormal Flag Note LastModifiedBy Organization Detail LastModifiedTime 12/14/19 22 12/13/2021 COLOG UARD cologuard result Cancel led - Order d not applic able Not Available [facility] (Cologuard Orders Only) [address], [place], [address], 12/13/2021 07:25:10 12/14/1912/13/2020 urina lysis , dipst ick Leukocytes Negati ve Not Available In-Office Order Internal Use Only DO Not Attach Compendium DO Not Attach Compendium, Do Not Delete/merge, 12/13/2020 13:01:21 12/14/1912/13/2020 urina lysis , dipst ick Nitrite negati ve Not Available In-Office Order Internal Use Only DO Not Attach Compendium DO Not Attach Compendium, Do Not Delete/merge, 12/13/2020 13:01:21 12/14/1912/13/2020 urina lysis , dipst ick Urobilinogen .2 Not Available In-Of fice Order Internal Use Only DO Not Attach Compendium DO Not Attach Compendium, Do Not Delete/merge, 12/13/2020 13:01:21 12/14/1912/13/2020 urina lysis , dipst ick Protein Negati ve Not Available In-Office Order Internal Use Only DO Not Attach Compendium DO Not Attach Compendium, Do Not Delete/merge, 12/13/2020 13:01:21 12/14/1912/13/2020 urina lysis , dipst ick pH 6.5 Not Available In-Office Order Internal Use Only DO Not Attach Compendium DO Not Attach Compendium, Do Not Delete/merge, 12/13/2020 13:01:21 12/14/1912/13/2020 urina lysis , dipst ick Blood Non-He molyze d: Trace Not Available In-Office Order Internal Use Only DO Not Attach Compendium DO Not Attach Compendium, Do Not Delete/merge, [facility] 12/13/2020 13:01:21 12/14/1912/13/2020 urina lysis , dipst ick Specific [place] 1.020 Not Available In-Off ice Order Internal Use Only DO Not Attach Compendium DO Not Attach Compendium, Do Not Delete/merge, [facility] 12/13/2020 13:01:21 12/14/1912/13/2020 urina lysis , dipst ick Ketone Negati ve Not Available In-Office Order Internal Use Only DO Not Attach Compendium DO Not Attach Compendium, Do Not Delete/merge, [facility] 12/13/2020 13:01:21 12/14/1912/13/2020 urina lysis , dipst ick Bilirubin Negati ve Not Available In-Office Order Internal Use Only DO Not Attach Compendium DO Not Attach Compendium, Do Not Delete/merge, [facility] 12/13/2020 13:01:21 12/14/1912/13/2020 urina lysis , dipst ick Glucose Negati ve Not Available In-Office Order Internal Use Only DO Not Attach Compendium DO Not Attach Compendium, Do Not Delete/merge, [facility] 12/13/2020 13:01:21 02/17/2002/16/2019 urina lysis , dipst ick Leukocytes Negati ve Not Available In-Office Order Internal Use Only DO Not Attach Compendium DO Not Attach Compendium, Do Not Delete/merge, [facility] 02/16/2019 15:47:51 02/17/2002/16/2019 urina lysis , dipst ick Nitrite negati ve Not Available In-Office Order Internal Use Only DO Not Attach Compendium DO Not Attach Compendium, Do Not Delete/merge, [facility] 02/16/2019 15:47:51 02/17/2002/16/2019 urina lysis , dipst ick Urobilinogen .2 Not Available In-Of fice Order Internal Use Only DO Not Attach Compendium DO Not Attach Compendium, Do Not Delete/merge, 02/16/2019 15:47:51 02/17/2002/16/2019 urina lysis , dipst ick Protein Negati ve Not Available In-Office Order Internal Use Only DO Not Attach Compendium DO Not Attach Compendium, Do Not Delete/merge, 02/16/2019 15:47:51 02/17/2002/16/2019 urina lysis , dipst ick pH 6.0 Not Available In-Office Order Internal Use Only DO Not Attach Compendium DO Not Attach Compendium, Do Not Delete/merge, 02/16/2019 15:47:51 02/17/2002/16/2019 urina lysis , dipst ick Blood Non-He molyze d: Trace Not Available In-Office Order Internal Use Only DO Not Attach Compendium DO Not Attach Compendium, Do Not Delete/merge, 02/16/2019 15:47:51 02/17/2002/16/2019 urina lysis , dipst ick Specific [place] 1.020 Not Available In-Off ice Order Internal Use Only DO Not Attach Compendium DO Not Attach Compendium, Do Not Delete/merge, 02/16/2019 15:47:51 02/17/2002/16/2019 urina lysis , dipst ick Ketone Negati ve Not Available In-Office Order Internal Use Only DO Not Attach Compendium DO Not Attach Compendium, Do Not Delete/merge, 02/16/2019 15:47:51 02/17/2002/16/2019 urina lysis , dipst ick Bilirubin Negati ve Not Available In-Office Order Internal Use Only DO Not Attach Compendium DO Not Attach Compendium, Do Not Delete/merge, 02/16/2019 15:47:51 02/17/2002/16/2019 urina lysis , dipst ick Glucose Negati ve Not Available In-Office Order Internal Use Only DO Not Attach Compendium DO Not Attach Compendium, Do Not Delete/merge, 02/16/2019 15:47:51 02/17/2002/16/2019 pregn caleb test, urine HCG negati ve Not Available In-Office Order Internal Use Only DO Not Attach Compendium DO Not Attach Compendium, Do Not Delete/merge, [id number] 02/16/2019 15:47:36 01/02/20 16 01/02/2016 pregn caleb test, urine HCG negati ve Not Available In-Office Order Internal Use Only DO Not Attach Compendium DO Not Attach Compendium, Do Not Delete/merge, [facility] 01/02/2016 14:49:47 10/08/19 16 10/08/2015 urina lysis , dipst ick Leukocytes Small Not Available In-Offi ce Order Internal Use Only DO Not Attach Compendium DO Not Attach Compendium, Do Not Delete/merge, [facility] 10/08/2015 15:34:11 10/08/19 16 10/08/2015 urina lysis , dipst ick Nitrite positi ve Not Available In-Office Order Internal Use Only DO Not Attach Compendium DO Not Attach Compendium, Do Not Delete/merge, [facility] 10/08/2015 15:34:11 10/08/19 16 10/08/2015 urina lysis , dipst ick Urobilinogen .2 Not Available In-Of fice Order Internal Use Only DO Not Attach Compendium DO Not Attach Compendium, Do Not Delete/merge, [facility] 10/08/2015 15:34:11 10/08/19 16 10/08/2015 urina lysis , dipst ick Protein 30 Not Available In-Office Order Internal Use Only DO Not Attach Compendium DO Not Attach Compendium, Do Not Delete/merge, [id number] 10/08/2015 15:34:11 10/08/19 16 10/08/2015 urina lysis , dipst ick pH 6.5 Not Available In-Office Order Internal Use Only DO Not Attach Compendium DO Not Attach Compendium, Do Not Delete/merge, [id number] 10/08/2015 15:34:11 10/08/19 16 10/08/2015 urina lysis , dipst ick Blood Non-He molyze d: Trace Not Available In-Office Order Internal Use Only DO Not Attach Compendium DO Not Attach Compendium, Do Not Delete/merge, [facility] 10/08/2015 15:34:11 10/08/19 16 10/08/2015 urina lysis , dipst ick Specific [place] 1.030 Not Available In-Off ice Order Internal Use Only DO Not Attach Compendium DO Not Attach Compendium, Do Not Delete/merge, [facility] 10/08/2015 15:34:11 10/08/19 16 10/08/2015 urina lysis , dipst ick Ketone Trace Not Available In-Office Order Internal Use Only DO Not Attach Compendium DO Not Attach Compendium, Do Not Delete/merge, [facility] 10/08/2015 15:34:11 10/08/19 16 10/08/2015 urina lysis , dipst ick Bilirubin Negati ve Not Available In-Office Order Internal Use Only DO Not Attach Compendium DO Not Attach Compendium, Do Not Delete/merge, [facility] 10/08/2015 15:34:11 10/08/19 16 10/08/2015 urina lysis , dipst ick Glucose Negati ve Not Available In-Office Order Internal Use Only DO Not Attach Compendium DO Not Attach Compendium, Do Not Delete/merge, [facility] 10/08/2015 15:34:11 09/20/19 16 09/20/2015 urina lysis , dipst ick Leukocytes Trace Not Available In-Offi ce Order Internal Use Only DO Not Attach Compendium DO Not Attach Compendium, Do Not Delete/merge, [facility] 09/20/2015 15:46:42 09/20/19 16 09/20/2015 urina lysis , dipst ick Nitrite negati ve Not Available In-Office Order Internal Use Only DO Not Attach Compendium DO Not Attach Compendium, Do Not Delete/merge, [facility] 09/20/2015 15:46:42 09/20/19 16 09/20/2015 urina lysis , dipst ick Urobilinogen .2 Not Available In-Of fice Order Internal Use Only DO Not Attach Compendium DO Not Attach Compendium, Do Not Delete/merge, [facility] 09/20/2015 15:46:42 09/20/19 16 09/20/2015 urina lysis , dipst ick Protein Trace Not Available In-Office Order Internal Use Only DO Not Attach Compendium DO Not Attach Compendium, Do Not Delete/merge, [id number] 09/20/2015 15:46:42 09/20/19 16 09/20/2015 urina lysis , dipst ick pH 7.0 Not Available In-Office Order Internal Use Only DO Not Attach Compendium DO Not Attach Compendium, Do Not Delete/merge, [facility] 09/20/2015 15:46:42 09/20/19 16 09/20/2015 urina lysis , dipst ick Blood Negati ve Not Available In-Office Order Internal Use Only DO Not Attach Compendium DO Not Attach Compendium, Do Not Delete/merge, [facility] 09/20/2015 15:46:42 09/20/19 16 09/20/2015 urina lysis , dipst ick Specific [place] 1.025 Not Available In-Off ice Order Internal Use Only DO Not Attach Compendium DO Not Attach Compendium, Do Not Delete/merge, [facility] 09/20/2015 15:46:42 09/20/19 16 09/20/2015 urina lysis , dipst ick Ketone Negati ve Not Available In-Office Order Internal Use Only DO Not Attach Compendium DO Not Attach Compendium, Do Not Delete/merge, [facility] 09/20/2015 15:46:42 09/20/19 16 09/20/2015 urina lysis , dipst ick Bilirubin Negati ve Not Available In-Office Order Internal Use Only DO Not Attach Compendium DO Not Attach Compendium, Do Not Delete/merge, [facility] 09/20/2015 15:46:42 09/20/19 16 09/20/2015 urina lysis , dipst ick Glucose Negati ve Not Available In-Office Order Internal Use Only DO Not Attach Compendium DO Not Attach Compendium, Do Not Delete/merge, [facility] 09/20/2015 15:46:42 10/08/19 16 10/10/2015 cultu re, urine urine culture, routine FINAL REPORT Not Available [facility] ([facility]) [address] [facility], [place], [address], 10/10/2015 06:13:04 10/08/19 16 10/10/2015 cultu re, urine result 1 COMMEN T MIXED UROGE NITAL BONNIE LESS THAN 10,00 0 COLON IES/M L Not Available [facility] ([facility]) [address] [facility], [place], [address], 10/10/2015 06:13:04 02/17/20 19 02/17/2019 pap, IG + HPV, cervi jed HPV aptima NEGATI VE negati ve This test detec ts fourt een high- risk HPV types (16/1 8/31/ 33/35 /39/4 5/ 51/52 /56/5 8/59/ 66/68 ) witho ut diffe renti ation . Not Available [facility] ([facility]) [address] [facility], [place], [address], 02/21/2019 07:05:53 02/17/2002/21/2019 pap, IG + HPV, cervi jed diagnosis: KARIS Rivas NEGAT IRINA FOR INTRA EPITH ELIAL RADHA Tellez OR ADRIA CUEVAS . Not Available [facility] ([facility]) [address] [facility], [place], [address], 02/21/2019 07:05:53 02/17/2002/21/2019 pap, IG + HPV, cervi jed specimen adequacy: KARIS Rivas Satis facto ry for evalu ation . No endoc ervic al compo nent is ident ified . Not Available [facility] ([facility]) [address] [facility], [place], [address], 02/21/2019 07:05:53 02/17/2002/21/2019 pap, IG + HPV, cervi jed clinician provided ICD10: KARIS Rivas Z20.2 Z01.4 19 Not Available [facility] ([facility]) [address] [facility], [place], [address], 02/21/2019 07:05:53 02/17/20 19 02/21/2019 pap, IG + HPV, cervi jed performed by: KARIS lazcano, Rommel rivas (ASCP ) Not Available [facility] ([facility]) [address] [facility], [place], [address], 02/21/2019 07:05:53 02/17/2002/21/2019 pap, IG + HPV, cervi jed . . Not Available [facility] ([facility]) [address] [facility], [place], [address], 02/21/2019 07:05:53 02/17/2002/21/2019 pap, IG + HPV, cervi jed note: COMMEN T The Pap smear is a scree aggie test desig arthur to aid in the detec tion of manolo ligna nt and malig nant condi tions of the uteri ne cervi x. It is not a diagn ostic proce dure and shoul d not be used as the sole means of detec ting cervi jed cance r. Both false -posi tive and false -nega tive repor ts do occur . Not Available [facility] ([facility]) [address] [facility], [place], [address], 02/21/2019 07:05:53 02/17/2002/21/2019 pap, IG + HPV, cervi jed test methodology: KARIS T This liqui d based ThinP rep(R ) pap test was scree arthur with the use of an image guide d conor siegel. Not Available [facility] ([facility]) [address] [place], [address], 02/21/2019 07:05:53 02/17/2002/19/2019 bacte rial vagin osis panel , vagin al trich vag by ANJU NEGATI VE negati ve Not Available [facility] ([facility]) [address] [place], [address], 02/23/2019 06:10:19 02/17/2002/19/2019 bacte rial vagin osis panel , vagin al chlamydia trachomatis, ANJU NEGATI VE negati ve Not Available [facility] ([facility]) [address] [facility], [place], [address], 02/23/2019 06:10:19 02/17/2002/19/2019 bacte rial vagin osis panel , vagin al neisseria gonorrhoeae, ANJU NEGATI VE negati ve Not Available [facility] ([facility]) [address] [place], [address], 02/23/2019 06:10:19 02/17/2002/22/2019 bacte rial vagin osis panel , vagin al atopobium vaginae LOW - 0 score Not Available [facility] ([facility]) [address] [facility], [place], [address], 02/23/2019 06:10:19 02/17/2002/22/2019 bacte rial vagin osis panel , vagin al bvab 2 LOW - 0 score Not Available [facility] ([facility]) [address] [facility], [place], [address], 02/23/2019 06:10:19 02/17/2002/22/2019 bacte rial vagin osis panel , vagin al megasphaera 1 LOW - 0 score Calcu late total score by taqueria cullen the 3 indiv idual bacte rial vagin osis (BV) marke r score s toget her. Total score is inter prete d as follo ws: Total score 0-1: Indic ates the absen ce of BV. Total score 2: Indet ermin ate for BV. Addit ional clini jed data shoul d be evalu ated to estab ga a diagn osis. Total score 3-6: Indic ates the prese nce of BV. This test was devel oped and its perfo rmanc e jenaro cteri stics deter mined by [facility]. It has not been clear ed or appro edwige by the Food and Drug Admin istra tion. The FDA has deter mined that such clear ance or appro robi is not neces michael. Not Available [facility] ([facility]) [address] [place], [address], 02/23/2019 06:10:19 02/17/2002/22/2019 bacte rial vagin osis panel , vagin al chika albicans, ANJU NEGATI VE negati ve Not Available [facility] ([facility]) [address] [facility], [place], [address], 02/23/2019 06:10:19 02/17/2002/22/2019 bacte rial vagin osis panel , vagin al chika glabrata, ANJU NEGATI VE negati ve This test was devel oped and its perfo rmanc e jenaro cteri stics deter mined by [facility]. It has not been clear ed or appro edwige by the Food and Drug Admin istra tion. The FDA has deter mined that such clear ance or appro robi is not neces michael. Not Available [facility] ([facility]) [address] [facility], [place], [address], 02/23/2019 06:10:19 02/17/2002/22/2019 bacte rial vagin osis panel , vagin al hsv 1 ANJU POSITI VE negati ve abnormal Not Available [facility] ([facility]) [address] [place], [address], 02/23/2019 06:10:19 02/17/2002/22/2019 bacte rial vagin osis panel , vagin al hsv 2 ANJU NEGATI VE negati ve Not Available [facility] ([facility]) [address] [place], [address], 02/23/2019 06:10:19 02/17/2002/20/2019 cultu re, vagin al/re ctal, strep tococ cus group B strep gp B ANJU NEGATI VE negati ve Cente rs for Disea se Contr ol and Preve ntion (CDC) and Ameri can Congr ess of Obste trici ans and Gynec ologi sts (ACOG ) guide lines for preve ntion of perin atal group B strep tococ jed (GBS) disea se speci fy co-co llect ion of a vagin al and recta l swab speci men to maxim ize sensi tivit y of GBS detec tion. Per the CDC and ACOG, swabb ing both the lower vagin a and rectu m subst antia lly incre ases the yield of detec tion shaniqua red with sampl ing the vagin a alone . Penic illin G, ampic illin , or cefaz korin are indic ated for intra partu m proph ylaxi s of perin atal GBS colon izati on. Refle x susce ptibi lity testi ng shoul d be perfo rmed prior to use of clind amyci n only on GBS isola franky from penic illin -renu rgic women who are consi dered a high risk for anaph ylaxi s. Treat ment with vanco mycin witho ut addit ional testi ng is warra nted if resis tance to clind amyci n is noted . Not Available [facility] ([facility]) [address] [place], [address], 02/23/2019 06:10:19 12/14/19 21 12/15/2020 H pylor i urea breat h test, co2 infra red H pylori breath test Negati ve negati ve Not Available [facility] ([facility]) [address] [place], [address], 12/15/2020 16:09:01 Result Notes None recorded. Problems Name Problem SNOMED Code Status Onset Date Resolution Date Notes Provider Name and Address Organization Details Recorded Time Deliverie s by Active Not Available [facility] 09:01:51 Deliverie s by Completed Azucena miguel, [place] - [facility] 6 14:08:37 Abnormal progester one 409381398 Active Not Available [facility] 09:01:52 Abnormal progester one 499100457 Completed Azucena miguel, [place] - [facility] 6 14:08:37 Syncope 516672236 Completed 12/12/2020 [place] miguel, [place] - [facility] 1 22:33:57 Syncope 309307022 Completed Azuc[place] [facility] 6 14:08:37 Low back pain 661506271 Completed 12/12/2020 [place] [facility] 1 22:33:55 Low back pain 326782411 Completed Azucena [place] - [facility] 6 14:08:37 Chlamydia l infection 528076628 Active Not Available [facility] 09:01:52 Chlamydia l infection 044699969 Completed [place]uc[place] - [facility] 6 14:08:37 Acute urinary tract infection 176021469 Active Not Available [facility] 09:01:52 Acute urinary tract infection 772018786 Completed Azuc[place] - [facility] 6 14:08:37 Group B Streptoco ccus carrier 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 Procedures Surgical History Date Name Laterality Status Provider Name and Address Organization Details Recorded Time 2 Control Implant Removal completed TEQUILA DALTON Attn: Accounting,[address] [place], [address], [place] - [facility] 10/14/2021 10:28:18 9 Control Implant Removal completed Darby Rain [place] - [facility] 02/16/2019 15:46:32 9 Control Implant Insertion completed Darby Rain [place] - [facility] 02/16/2019 15:46:35 9 Date of Last Pap Smear completed Darby Rain MA SIMÓN - [facility] 02/16/2019 15:43:14 6 Control Implant Insertion completed Josh GR - [facility] 01/02/2016 19:07:21 6 Caesarean Section completed Darby Rain [place] - [facility] 02/16/2019 15:45:41 5 Depo Injection completed Josh Meier PA - [facility] 09/18/2014 09:56:12 3 Caesarean Section completed Darby Rain [place] - [facility] 09/06/2014 11:27:26 Imaging Results None recorded. Procedure Notes None recorded. Medical Equipment None Reported. Allergies Allergen ID Allergen Name Allergen Category Reaction Reaction Severity Criticality Documentation Date Start Date Code Code System Note Provider Name and Address Organization Details Recorded Time 59095 Product containin g penicilli n (product) medicatio n anaphylax is severe Not available 09/06/2014 03965 8001 SNOMED Darby Rain MA [place], [place] - [facility] 5 11:23:16 61994 bee pollen environme nt,medica tion anaphylax is severe Not available 04/04/2015 87877 7 RxNorm CAROLE Hernandez, [place] - [facility] 5 13:00:35 Medications Name Sig Start Date Stop Date Status Note LastModified by Organization Details LastModified Time Prescript ion - New 02/16 completed Nuvaring perscrip tion Not Available Not Available Not Available Prometriu m 200 mg capsule Take 1 capsule twice a day by oral route. 2014 active Not Available Not Available Not Avai lable cyclobenz aprine 10 mg tablet 02/16 completed Not Available Not Available Not Available ibuprofen 800 mg tablet TAKE 1 TABLET BY MOUTH THREE TIMES DAILY NEEDED FOR CRAMPS 02/16 completed Not Available Not Available Not Available clarithro mycin 500 mg tablet Take 1 tablet every 12 hours by oral route as directed for 14 days. 10/03 completed Not Available Not Available Not Available sertralin e 100 mg tablet 02/16 completed Not Available Not Available Not Available Zithromax Z-Barry 250 mg tablet TAKE 2 TABLETS (500 MG) BY ORAL ROUTE ONCE DAILY FOR 1 DAY THEN 1 TABLET (250 MG) BY ORAL ROUTE ONCE DAILY FOR 4 DAYS 2015 active Not Available Not Available Not Avai lable metronida zole 500 mg tablet Take 1 tablet twice a day by oral route as directed for 14 days. 10/03 completed Not Available Not Available Not Available acetamino phen 300 mg-codein e 30 mg tablet TAKE 1 TABLET BY MOUTH EVERY 6 HOURS NEEDED FOR PAIN 10/03 completed Not Available Not Available Not Available acyclovir 800 mg tablet Take one tablet by mouth twice daily for 10 days, then take one tablet once daily. Quantity of 40 first month, then refill w/ 30 tabs thereaft er. 10/03 completed Not Available Not Available Not Available Vitamin tablet Take 1 tablet every day by oral route as directed . 02/16 completed Not Available Not Available Not Available propranol ol 10 mg tablet 02/16 completed Not Available Not Available Not Available ferrous sulfate 325 mg (65 mg iron) tablet Take 1 tablet twice a day by oral route. 02/16 completed Not Available Not Available Not Available diclofena c potassium 50 mg tablet 02/16 completed Not Available Not Available Not Available omeprazol e 20 mg capsule,d elayed release Take 1 capsule twice a day by oral route as directed for 14 days. 10/03 completed Not Available Not Available Not Available Percocet 5 mg-325 mg tablet Take 1 tablet every 6 hours by oral route. 02/16 completed Not Available Not Available Not Available dicyclomi ne 10 mg capsule TAKE ONE CAPSULE BY MOUTH THREE TIMES DAILY 10/03 completed Not Available Not Available Not Available Nexplanon 68 mg subdermal implant Inject 1 implant by subcutan eous route. 10/14 completed pt tolerate d procedur e well, rtc 2 months, cb-rma Not Available Not Available Not Available 28 mg iron-800 mcg tablet Take 1 tablet every day by oral route. 2021 active Not Available Not Available Not Avai lable calcium 600 mg (as carbonate )-vitamin D3 20 mcg (800 unit) tablet Take 1 tablet twice a day by oral route for 30 days. 02/16 completed Not Available Not Available Not Available Vitals Date Recorded Body height Body mass index (BMI) Body weight Systolic blood pressure Diastolic blood pressure Provider Name and Address Organization Details Last Updated DateTime 10/03/2021 162.56 cm 22.1 kg/m2 86517.42 g 100 mm[Hg] 68 mm[Hg] Priyanka Delgado MA [facility] 2 10:18:37 Date Recorded Body mass index (BMI) Body height Body weight Systolic blood pressure Diastolic blood pressure Provider Name and Address Organization Details Last Updated DateTime 10/08/2015 29 kg/m2 162.56 cm 94775.11 053 g 100 mm[Hg] 60 mm[Hg] Janel Dey MA [facility] 6 15:35:32 Date Recorded Body height Body weight Body mass index (BMI) Systolic blood pressure Diastolic blood pressure Provider Name and Address Organization Details Last Updated DateTime 01/02/2016 162.56 cm 16628.89 365 g 24.9 kg/m2 110 mm[Hg] 72 mm[Hg] Janel Dey MA [facility] 6 14:51:46 Date Recorded Body height Body mass index (BMI) Body weight Systolic blood pressure Diastolic blood pressure Provider Name and Address Organization Details Last Updated DateTime 02/16/2019 162.56 cm 22.3 kg/m2 62535.01 g 108 mm[Hg] 76 mm[Hg] Darby Rain MA [facility] 9 15:49:56 Social History Question Answer Notes LastModified by Organizat ion Details LastModified Time Tobacco Smoking Status Current Every Day Smoker Darby Rain MA null, [facility] 09/06/2014 11:29:24 Do You Have An Advance Directive? No Information not available 04/04/2015 If You Are , What Was Your Level Of Alcohol Consumption Prior To ? Occasional [email or web address] Information not available 04/04/2015 Is Anesthesia Consult Planned? Yes Spinal Epidural Information not available 04/04/2015 Plan No [email or web address] Information no t available 04/04/2015 Is Blood Transfusion Acceptable In An Emergency? Yes [email or web address] Information not available 04/04/2015 What Is Your Level Of Caffeine Consumption? Moderate Information not available 04/04/2015 Live With Cats/exposure To Cat Litter No [email or web address] Information not available 04/04/2015 How Much Tobacco Do You Chew? None [email or web address] Information not available 04/04/2015 What Type Of Diet Are You Following? REGULAR [email or web address] Information not available 04/04/2015 Which Illicit Or Recreational Drugs Have You Used? Yes [email or web address] Information not available 04/04/2015 Education 10 [email or web address] Information no t available 04/04/2015 Have There Been Any Changes To Your Family Or Social Situation? No [email or web address] Information not available 04/04/2015 Frequent Air Travel No [email or web address] Information not available 04/04/2015 Illicit Drugs Pre- Yes [email or web address] Information not available 04/04/2015 Live Alone Or With Others? With Others [email or web address] Information not available 04/04/2015 Marital Status Single [email or web address] Informatio n not available 04/04/2015 What Was The Date Of Your Most Recent Tobacco Screening? 10/03/2021 [email or web address] Information not available 10/03/2021 How Many Children Do You Have? 2 Information not available 02/16/2019 Seat Belts Used Routinely Yes [email or web address] Information not available 04/04/2015 Are You Sexually Active? Yes Information not available 09/06/2014 Do You Have Smoke And Carbon Monoxide Detectors In Your Home? Yes [email or web address] Information not available 04/04/2015 At What Age Did You Start Smoking Tobacco? 12 [email or web address] Information not available 04/04/2015 Are You Passively Exposed To Smoke? Yes [email or web address] Information not available 04/04/2015 How Much Tobacco Do You Smoke? 0.25 PPD [email or web address] Information not available 07/05/2015 Smoking Pre- Yes [email or web address] Information not available 04/04/2015 General Stress Level High [email or web address] Information not available 04/04/2015 Do You Use Sunscreen Routinely? No [email or web address] Information not available 04/04/2015 Supplements None [email or web address] Information n ot available 04/04/2015 How Many Years Have You Smoked Tobacco? 8 Information not available 02/16/2019 Sex: Unknown Functional Status Question Answer Note LastModified by Organizat ion Details LastModified Time What is your level of alcohol consumption? Occasional Information not available 09/06/2014 Are you currently employed? 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 Occasional [email or web address] Information not available 04/04/2015 Mental Status None recorded. Family History Nothing Reported. Medical History Condition Response Coronary Artery Disease N Kidney Cyst N Blood Diseases N Hyperthyroidism N Blood disorders N Blood Transfusion N MRSA N Emphysema N Depression N COPD N Blood Clots N Pneumonia N Premature N Peripheral Arterial Disease N Edema N TIA N Headaches/Migraines N Anxiety Disorder N Obesity N Polyps N Infertility N Acid Reflux (GERD) N Hematuria N Stroke N Neck Injury N Polio N Hospital Admission other than N Neurologic Disorder N Other Sleep Disorders N Rheumatoid Arthritis N Fibromyalgia N Abdominal Aortic Aneurysm Repair N Kidney Disease N Heart Conditions N Heart Disease/Heart Problems N Hospitalizations N Brain Tumors N Acne N Skin Problems N Eating Disorder N Meningitis N Constipation N Tuberculosis N Cerebral Palsy N Myocardial Infarction N Asthma N Substance Abuse N Peripheral Vascular Disease N Vertigo Y Sleep Disorder N Cirrhosis N Pulmonary Embolism N Chicken Pox Y Hematologic Disease N Flomax Use Past or Present N Anxiety/Depression N Thyroid Disease N Colon Cancer N Lung Disease N Glaucoma N Developmental or Behavioral Disorders N Bipolar N Pacemaker N Diverticulitis/Diverticulosis N Orthopedic Problems N Anesthesia Complications N Orthotics N Head Injury/Concussion N Congenital Anomalies N Stanton Bite N Chronic Kidney Disease N Endometriosis N Liver Disease N Schizophrenia N Dialysis N Speech Delay N Chronic Obstructive Pulmonary Disease N Parkinson's Disease N Thyroid Problems N GI Problems N Developmental Delay N Anemia N Multiple Sclerosis N Immune System Disorder N Colon Polyps N Heart Attack (OR) N Diabetes N Cardiomyopathy N Blood Transfusions N Heart Problems/Murmur N Eye Trauma N Congestive Heart Failure (CHF) N Valvular Heart Disease N Hyperlipidemia N Double Vision N Abuse/Domestic Violence N Hepatitis B N Lupus N Epilepsy/Seizures N Reflux/GERD N Aneurysm N Heart Disease N Bronchitis N Pre-Eclampsia N Hypertension N Heart Failure N Other N Gout N High Blood Pressure N Atrial Fibrillation N Kidney Stones N Head Trauma/Injury N Congenital Heart Disease N Spine Problems N Gastrointestinal Disease N Lung Mass N Sinusitis N Obstructive Sleep Apnea N Muscle, Joint, or Bone Problems N Autoimmune disease N Vision or Eye Problems N Arthritis N Blood Clot N Cancer N Seasonal allergies N Leg or Foot Ulcers N Raynaud's Disease N Aortic Aneurysm N Arrhythmia N Headaches N Heart Problems N [place] N Ear or Hearing Problems N Hyperparathyroidism N Migraines N Artificial Joints N Kidney or Bladder Problems N NSAID Use N Encephalitis N PTSD N Ulcers N Prostate Hypertrophy N Bleeding Disorder N AIDS/HIV N Urinary Tract Infection N Back Problems N Allergies N Atrial Flutter N GERD/Reflux N Hepatitis N Autism Spectrum Disorder (ASD) N Breast Cancer N Hernia N Hypothyroidism N Breast Problem N Genitourinary Disease N Deep Vein Thrombosis N Varicose Veins N Cystic Fibrosis N Hearing Loss N Developmental Problems N Carotid Disease N Vitamin D Deficiency N ADHD N Bladder or Kidney Problems N High Cholesterol N [place] N Valvular Abnormalities N Psychiatric/Mental Health Condition N Organ Transplant N Foot Deformity N Allergies/Hayfever N Dyslipidemia N Hyponatremia N Diabetic Eye Disease N Osteoporosis/Osteopenia N Back Pain Y Proteinuria N Mental Illness N Neurological Problems N Ovarian Cancer N Bedwetting N Seizures/Epilepsy N Kidney Failure N Ocular trauma N Diverticulitis N Dementia N Sleep Apnea N Mental Problems N Warfarin Management N Osteoporosis N Gynecological History Statement/Question Response Abnormal Pap N Flow Heavy Date of LMP 09/08/2021 STIs/STDs Y HPV Vaccine Y Age at Menarche 9 Current Control Method Implant Age at First Child 17 Sexually Active? Y Menses Monthly N Date of Last Pap Smear 02/16/2019 Sexual Problems? N LMP Approximate Desired Control Method Implant Obstetrics History GPAL:G 2 P 2 0 0 2 Type Value Multiple Births 0 Full Term 2 Induced 0 Spontaneous 0 Premature 0 Living 2 Ectopics 0 Total 2 Immunizations Vaccine Type Date Status Note Provider Nam e and Address Organization Details Recorded Time Influenza, split virus, quadrivalent, preservative 5 completed Not Available [facility] 09/03/2019 02:32:09 Tdap 5 completed Not Available [facility] 09/03/2019 02:30:20 Past Encounters Encounter ID Performer Location Encounter Start Date Encounter Closed Date Diagnosis/Indication Diagnosis SNOMED-CT Code Diagnosis ICD10 Code Diagnosis Note [id number] MD Brad Dupree (CHIEF TELEPHONE OPERATOR) [address] [place] [address] [id number] 0 09/06/2014 10:51:42 09/06/2014 13:03:45 Contraception education [id number] Contraception care [id number] Josh Meier MD [facility] (CHIEF TELEPHONE OPERATOR) [address] [place] [address] [id number] 04/04/2015 11:09:50 04/04/2015 14:24:15 Deliveries by [id number] Normal [id number] Josh Meier MD [facility] (CHIEF TELEPHONE OPERATOR) [address] [place] [address] [id number] 0 01/02/2016 14:28:58 01/03/2016 20:24:04 Rubella non-immune 469678054 Z23 Implantati on of subcutaneous contraceptive 837726876 Z30.9 [id number] Josh Meier MD [facility] (CHIEF TELEPHONE OPERATOR) [address] [place] [address] [id number] 0 05/04/2015 14:05:00 05/04/2015 15:02:09 Normal [id number] Josh Meier MD [facility] (CHIEF TELEPHONE OPERATOR) [address] [place] [address] [id number] 05/07/2015 11:06:36 05/07/2015 13:01:18 Normal 53654597 Administra tion of influenza vaccine 19284801 [id number] Josh Meier MD [facility] (CHIEF TELEPHONE OPERATOR) [address] [place] [address] [id number] 06/07/2015 15:06:01 06/07/2015 17:15:56 Normal 15542883 Z33.1 Deliveries by [id number] O82 Low back pain 022658029 M54.5 [id number] Josh Meier MD [facility] (CHIEF TELEPHONE OPERATOR) [address] [place] [address] [id number] 07/05/2015 10:12:51 07/05/2015 12:38:51 Normal 55067322 Z33.1 Deliveries by [id number] O82 Abnormal progesterone 13 2995254 R94.7 Rubella non-immune 10350 4009 Z01.84 Chlamydial infection [address] reptococcus carrier 2134892079 103 Z22.330 Contraception care 89353 5005 Z30.40 [id number] Josh Meier MD [facility] (CHIEF TELEPHONE OPERATOR) [address] [place] [address] [id number] 0 08/02/2015 09:55:40 08/02/2015 10:43:17 Normal 79845029 Z33.1 [id number] Josh Meier MD [facility] (CHIEF TELEPHONE OPERATOR) [address] [place] [address] [id number] 0 08/22/2015 10:11:38 08/22/2015 12:18:26 Normal 37010117 Z33.1 Deliveries by [id number] O82 Chlamydial infection 105 710685 A74.9 Rubella non-immune [address] reptococcus carrier 1573948252 103 Z22.330 [id number] [facility]IEF [facility]LEPHONE OPER[facility]) [address] [place] [address] [id number] 0 09/20/2015 14:33:01 09/20/2015 16:31:49 Normal 28599317 Z34.83 Deliveries by [id number] O82 [id number] Josh Meier MD [facility] (CHIEF TELEPHONE OPERATOR) [address] [place] [address] [id number] 10/08/2015 14:37:25 10/08/2015 15:56:46 Routine care 653300387 Z34.93 Z34.83 Acute urin david tract infection 720933190 N39.0 [id number] Josh Meier MD [facility] (CHIEF TELEPHONE OPERATOR) [address] [place] [address] [id number] 0 02/16/2019 14:45:12 02/18/2019 14:17:01 Gynecologic examination 18093277 Z01.419 CBE performed 02/16/19 Exposure t o sexually transmissible disorder 550941149 Z20.2 Removal of subcutaneous contraceptive done 5203883171 61184 Z30.46 Implantati on of subcutaneous contraceptive 431350325 Z30.9 [id number] Josh Meier MD [facility] (CHIEF TELEPHONE OPERATOR) [address] [place] [address] [id number] 0 12/13/2020 12:49:55 12/17/2020 08:39:28 Family planning surveillance 674441740 Z30.09 s/p Nexplanon insertion in February of 2019 Helicobact er pylori gastrointestinal tract infection 227900419 B96.81 Irritable bowel syndrome 14884144 K58.9 Screening for malignant neoplasm of colon 850426100 Z12.11 Surveillan ce of subcutaneous contraceptive implant 923551992 Z30.46 [id number] TEQUILA DALTON (CHIEF TELEPHONE OPERATOR) [facility] [place] [place] [address] 10/03/2021 10:00:12 10/14/2021 11:10:13 Removal of subcutaneous contraceptive 271997481 Z30.9 Nexplanon removed as detailed in procedure note, pt tolerated well. She would like to start TTC. Advised return to fertility w/in 1-2 weeks. Start daily PNV. Trying to conceive 62863 9001 Z31.9 Health Concerns Section Related Observation LastModified by Organization Detai ls LastModified Time None Recorded Concern Status LastModified by Organization Details LastModified Time None Recorded Advance Directives Directive N: Payers Insurance Date Sequence Insurance Name Policy Number Policy Lares Covered Member ID Lares Member ID Guarantor Name 10/14/2021 1 [facility] PRIOR TO 02/14/2021 (MEDICAID REPLACEMENT - HMO) Lynn Childers [id number] Lynn Childers 10/15/2021 1 [facility] ON OR AFTER 02/14/21 (MEDICAID REPLACEMENT - HMO) Lynn Childers [id number] Lynn Childers 09/18/2015 1 [facility] (MEDICAID HMO) Lynn Childers [id number] Lynn Childers 10/15/2021 1 [place] [employer] Lynn Childers [id number] Lynn Childers Notes Date Note Type Note Provider Name and Address Organization Details Recorded Time 10/08/2015 text/html OB ProblemReport ed bypatient.Associated Symptoms:no abdominal pain; no cramping; no contractions; normal movement; no bleeding; no ROM; no vaginal discharge; no vaginal/vulvar itching or irritation; no dysuria; no frequency; no urgency; no hematuria; no fever; no nausea; no emesis; no constipation; no diarrhea/loose stool; no edema; no visual changes; no headache; no dizziness Josh miguel, [facility] 10/08/2015 17:25:20 01/02/2016 text/html OCP CheckReporte d bypatient.Associated Symptoms:regular menses; no BTB menses; no side effects Josh miguel, PA [facility] 01/02/2016 19:07:22 02/16/2019 text/html OCP CheckReporte d bypatient.Associated Symptoms:regular menses; no BTB menses; no side effects 23yo wf presents today for removal of her old Nexplanon and replacement of a new one, in addition to her pap and CBE. Josh miguel, PA Lia [facility] 02/16/2019 19:18:26 12/13/2020 text/html 25yo wf pre sents today for ED follow up from visit on 12/06 for abdominal pain x 7 days. US showed slow transit SB and bilateral ovarian follicles; CT showed the same. Labs pertinent for lipase elevated to 87, otherwise WNL. Patient continues to complain of abdominal pain and constipation. She had a black, tarry stool yesterday and reports some lightheadedness with postion changes. Also reports night sweats and a 25 lb unintentional weight loss over the past 3 months. No cough, recent travel, shortness of breath, fevers, diarrhea, vaginal discharge/bleeding. Josh miguel, [facility] 12/13/2020 22:53:23 10/03/2021 text/html 26 year old female presents for Nexplanon implant removal. Patient has had the implant in her left arm for 1 year. Desires . Patient denies abnormal bleeding, arm pain, numbness, and tingling. TEQUILA DALTON Attn: Accounting,[address] [facility], [place], [address], [place] - [facility] 10/14/2021 10:32:05 OBGyn Episode Ob Episode Information Episode Created Date Number of Fetuses Patient Bloodtype Patient rh Status Prepregnancy Weight lbs Domestic Partner Domestic Partner Phone Father Name [employer] Director Status 04/04/20 15 1 CLOSED Fetus Data First Name Last Name Admitted to NICU Weight (g) Sex Living Outcome Pediatric Complications Fetus ID Race Codes Race Delivery Type 3345.24 1 M Full Term 09007 Primary Aneesh Calculation Initial Aneesh Date Initial [...] Complications Tubal Sterilization Discharge Date Comments 3 Regional-Sp inal 40 [place] Discharge Information Feeding Method Contraceptive Method Maternal HG B and HCT Levels Ob Episode Information Episode Created Date Number of Fetuses Patient Bloodtype Patient rh Status Prepregnancy Weight lbs Domestic Partner Domestic Partner Phone Father Name [employer] Director Status 04/04/20 15 1 A Negative 136 Lokesh Avila CLOSED Fetus Data First Name Last Name Admitted to NICU Weight (g) Sex Living Outcome Pediatric Complications Fetus ID Race Codes Race Delivery Type Danyel summers false 3118.44 5 M true Full Term 13024 2106-3 White Repeat Problems Problem Notes baby boy, adwoa palencia jessica rs, circumcision is YES, spinal for repeat c/section. PPBC nexplanon not until done breast feeding. 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 Malaika LAMP REPLACER 09/20/2015. Problem Name Start Date End Date Resolution Snomed Code Not e Deliveries by [id number] Abnormal progesterone 95813110 0 [place] 007181229 Low back pain 570621338 Chlamydial infection 544009706 Acute urinary tract infection 536671017 state [id number] Group B Streptococcus carrier [id number] Aneesh Calculation Initial Aneesh Date Initial Exam Date Initial Exam Provider Initial Ultrasound Date Last Menstrual Period Date Ultra Sound Weeks Gestation 10/29/2015 04/04/2015 fani 02/28/2015 01/20/2015 5 Eighteen To Twenty Week Aneesh Update Ultra Sound Date Fundal Height At Umbil Quickening Date Ultra Sound Latest Weeks Gestation Final Aneesh Confirmed By Final Aneesh Confirmed Date Final Aneesh Date Ultra Sound Latest Days Gestation 05/14/20 15 16 [email or web address] 05/16/2015 10/29/19 16 2 Pre- Flowsheet Flowsheet Date 04/04/2015 Haley Score Blood Edema Fundus Height Fundus Units Glucose Ketones Leukocytes Nitrite Labor Signs Protein Cervic Dilation Cervic Effacement Cervic Station neg none 10 negative none 0cm 0% - 4 Type Weight in lbs Pre/Post Dialysis Refused 136.030958235616 BP Diastolic BP Location Tested BP Systolic BP Type 74 120 Fetus Heart Rate Present A 165 Present Fetus Movement Comments NOB Flowsheet Date 05/04/2015 Haley Score Blood Edema Fundus Height Fundus Units Glucose Ketones Leukocytes Nitrite Labor Signs Protein Cervic Dilation Cervic Effacement Cervic Station Type Weight in lbs Pre/Post Dialysis Refused BP Diastolic BP Location Tested BP Systolic BP Type Fetus Heart Rate Present Fetus Movement Comments Flowsheet Date 05/07/2015 Haley Score Blood Edema Fundus Height Fundus Units Glucose Ketones Leukocytes Nitrite Labor Signs Protein Cervic Dilation Cervic Effacement Cervic Station neg none 15 wks none negative none neg Type Weight in lbs Pre/Post Dialysis Refused 140.860095551804 BP Diastolic BP Location Tested BP Systolic BP Type 50 88 sitting Fetus Heart Rate Present A 145 Present Fetus Movement A Yes Comments 16weeks, us Flowsheet Date 06/07/2015 Haley Score Blood Edema Fundus Height Fundus Units Glucose Ketones Leukocytes Nitrite Labor Signs Protein Cervic Dilation Cervic Effacement Cervic Station neg none 20 wks none negative Backpain neg Type Weight in lbs Pre/Post Dialysis Refused 137.245090069767 BP Diastolic BP Location Tested BP Systolic BP Type 62 110 sitting Fetus Heart Rate Present A 136 Fetus Movement A Yes Comments labs nl, us boy ,lbp mat bel t Flowsheet Date 07/05/2015 Haley Score Blood Edema Fundus Height Fundus Units Glucose Ketones Leukocytes Nitrite Labor Signs Protein Cervic Dilation Cervic Effacement Cervic Station trace none 20 cm none negative none neg Type Weight in lbs Pre/Post Dialysis Refused 148.187315971113 BP Diastolic BP Location Tested BP Systolic BP Type 40 92 sitting Fetus Heart Rate Present A 138 Present Fetus Movement A Yes Comments quad screen neg, cf, neg, hx of GBS+,CT+ needs BONNIE off urine today Flowsheet Date 08/02/2015 Haley Score Blood Edema Fundus Height Fundus Units Glucose Ketones Leukocytes Nitrite Labor Signs Protein Cervic Dilation Cervic Effacement Cervic Station neg none 27 cm none negative none neg Type Weight in lbs Pre/Post Dialysis Refused 156.122733996930 BP Diastolic BP Location Tested BP Systolic BP Type 48 88 sitting Fetus Heart Rate Present A 134 Present Fetus Movement A Yes Comments 28 week labs, us, tdap Flowsheet Date 08/22/2015 Haley Score Blood Edema Fundus Height Fundus Units Glucose Ketones Leukocytes Nitrite Labor Signs Protein Cervic Dilation Cervic Effacement Cervic Station neg none 29 cm none negative none trace Type Weight in lbs Pre/Post Dialysis Refused 152.160778803062 BP Diastolic BP Location Tested BP Systolic BP Type 52 100 sitting Fetus Heart Rate Present A 140 Present Fetus Movement A Yes Comments Flowsheet Date 09/20/2015 Haley Score Blood Edema Fundus Height Fundus Units Glucose Ketones Leukocytes Nitrite Labor Signs Protein Cervic Dilation Cervic Effacement Cervic Station neg none 32 cm none negative none neg Type Weight in lbs Pre/Post Dialysis Refused 161.812458497087 BP Diastolic BP Location Tested BP Systolic BP Type 54 102 sitting Fetus Heart Rate Present A 129 Present Fetus Movement A Yes Comments Flowsheet Date 10/08/2015 Haley Score Blood Edema Fundus Height Fundus Units Glucose Ketones Leukocytes Nitrite Labor Signs Protein Cervic Dilation Cervic Effacement Cervic Station neg none 36 cm none negative none trace 0cm 0% -4 Type Weight in lbs Pre/Post Dialysis Refused [id number] BP Diastolic BP Location Tested BP Systolic BP Type 60 100 sitting Fetus Heart Rate Present A 133 Present Fetus Movement A Yes Comments Menstrual History Last Menstrual Date Menses Monthly On Bcp Conception Prior Menses Frequency Hcg Plus Date Menarche Onset Age 0601/20/2015 Genetic Screening And Infection History Question Response Note Patient's Age Will Be 35 Yea rs Or Older At Estimated Date of Delivery false Thalassemia (Kazakh, Macanese, Mediterranean, Or Background): MCV < 80 false Neural Tube Defect (Meningomyelocele, Spina Bifi da, Or Anencephaly) false Congenital Heart Defect false Down Syndrome false Kenneth-Sachs (eg, Advent, Cajun, Welsh-Isabella) f alse Krystal Disease false Sickle Cell Disease Or Trait () false Hemophilia Or Other Blood Disorders false Muscular Dystrophy false Cystic Fibrosis false Kendleton's Chorea false Mental Retardation/Autism false If Yes, Was Person Tested For Fragile X? false Other Inherited Genetic Or Chromosomal Disorder false Maternal Metabolic Disorder (eg, Type 1 Diabetes , PKU) false Patient Or Baby's Father Had A Child With Defects Not Listed Above false Recurrent Loss, Or A Stillbirth false Medications (including Suppl ements, Vitamins, Herbs, OTC Drugs), Illicit/Recreational Drugs, Alcohol true see list If Yes, Agent(s) And Strength/Dosage false Any Other Genetic History false Live With Someone With TB Or Exposed To TB false Patient Or Partner Has History Of Genital Herpes false Rash Or Viral Illness Since Last Menstrual Perio d false History Of STD, Gonorrhea, Chlamydia, HPV, Syphi lis true chlam Other Infection History false Plans and Education First Trimester Discussed Date Discussion Item Discussion Note Discuss ed By 05/04/2015 Anticipated course of care [place] [id number] 05/04/2015 Alcohol [place] [address] 05/04/2015 Intimate partner violence [facility]05/04/2015 Environmental/work hazards [place] [id number] 05/04/2015 [facility] [place] 05/04/2015 Nutrition counseling ; special diet; dietary precautions (mercury, listeriosis) [place] [address] 05/04/2015 Childbirth classes/hospital facilities [place] [address] 05/04/2015 HIV and other routine tests [place] [address] 05/04/2015 Risk factors identif ied by history [place] [address] 05/04/2015 Weight gain counseling [place] [id number] 05/04/2015 Exercise [place] [address] 05/04/2015 Teratogens [place] [address] 05/04/2015 Use of any medicatio ns (including supplements, vitamins, herbs, or OTC drugs) [place] [address] 05/04/2015 breast feeding [place] [address] 05/04/2015 Sexual activity [place] [address] 05/04/2015 Tobacco/smoking cess ation counseling (ask, advise, assess, assist, and arrange) [place] [address] 05/04/2015 Illicit/recreational drugs [place] [id number] 05/04/2015 Dental care [place] [address] 05/04/2015 Travel [place] [address] 05/04/2015 Seat belt use [place] [address] 05/04/2015 Indications for ultrasonography [place] [address] 05/04/2015 Avoidance of saunas or hot tubs [place] [address] 05/04/2015 Toxoplasmosis precautions (cats/raw meat) [place] [address] Second Trimester Discussed Date Discussion Item Discussion Note Discuss ed By 10/22/2015 Selecting a care provider [facility] 10/22/2015 family planning/tubal sterilization [facility] 10/22/2015 Depression screening (when indicated) [facility] 10/22/2015 Abnormal lab values Rh Negative RhoGAM at 28 weeks [facility] 10/22/2015 Signs and symptoms o f labor [facility] 10/22/2015 Intimate partner violence [facility] 10/22/2015 Tobacco/smoking cess ation counseling (ask, advise, assess, assist, and arrange) [facility] Third Trimester Discussed Date Discussion Item Discussion Note Discuss ed By 10/22/2015 Intimate partner violence [facility] 10/22/2015 Anesthesia plans [facility] 10/22/2015 education (n ewborn screening, jaundice, SIDS/safe sleeping position, car seat) [facility] 10/22/2015 Circumcision [facility] 10/22/2015 [facility] movement monitoring [facility] 10/22/2015 [facility] 10/22/2015 Labor signs [facility] 10/22/2015 [facility]2015 Family medical leave or disability forms [facility] 10/22/2015 Tobacco/smoking cess ation counseling (ask, advise, assess, assist, and arrange) [facility] 10/22/2015 Trial of labor after (TOLAC) counseling [facility] 10/22/2015 Signs and symptoms of preeclampsia [facility] Delivery Information Delivery Date Delivery Type Labor Anesthesia Weeks Gestation Incision Type Labor Labor Length Hrs Delivered By Post Complications Tubal Sterilization Discharge Date Comments 6 None [facility] 39.4 Low Transvers e false JOSH MEIER MD None false 10/28/2015 Discharge Information Feeding Method Contraceptive Method Maternal HG B and HCT Levels Breast nexplanon
== END 2025-02-14 13:20 | disposition home or self-care (01) ==
PROVIDERS: PCP Family Medicine; Visit Provider Physician Assistant
DX: M67.441 Ganglion, right hand (principal)
CPT/HCPCS: 76882

== ENCOUNTER 2025-03-18 08:51 | Outpatient (CLI) | payer OTHER, SELFPAY ==
--- NOTE | ~2025-03-18 | MR_ITS ---
MRI of the right hand CLINICAL HISTORY: Swelling, mass TECHNIQUE: Axial T1-weighted, proton density, and T2 fat-sat images, coronal T1-weighted and T2 fat-s at images, and sagittal T1-weighted and T2 fat-sat images were performed. Following intravenous admin istration of 12 cc MultiHance gadolinium, T1-weighted fat-sat imaging was performed in the axial, cor onal, and sagittal planes. FINDINGS: Bone marrow signals are unremarkable. No fracture or marrow edema. No evidence for osteitis . Joint spaces and collateral ligaments are intact. No joint effusion. There is a 1.0 x 0.8 x 1.6 cm somewhat tubular ganglion cyst interposed between the flexor pollicis l ongus and flexor digitorum longus tendons at the palmar aspect of the proximal hand, probably extendi ng from the region of the capitate trapezoid articulation. No other soft tissue mass or fluid collect ion seen. Remaining musculature unremarkable. Tendons are intact. IMPRESSION: 1.0 x 0.8 x 1.6 cm ganglion cyst interposed between the flexor pollicis longus and flexor digitorum l ongus tendons, as detailed above. Reviewed, dictated and finalized at location M. IMPRESSION: 1.0 x 0.8 x 1.6 cm ganglion cyst interposed between the flexor pollicis longus and flexor digitorum longus tendons, as detailed above.
== END 2025-03-18 08:52 | disposition home or self-care (01) ==
LOC: CHSIMG 08:52
PROVIDERS: PCP Physician Assistant
DX: R22.30 Localized swelling, mass and lump, unspecified upper limb (principal); M67.441 Ganglion, right hand
CPT/HCPCS: 73220; A9577

== ENCOUNTER 2025-04-04 12:04 | Outpatient (CLI) | payer OTHER, SELFPAY ==
[2025-04-04 12:21] LABS: Hematocrit 39.0 % (35.0-49.0); Hemoglobin 13.0 g/dL (12.0-15.0); Mean Corpuscular HGB Conc 33.3 g/dL (32-36); Mean Corpuscular Hemoglobin 30.6 pg (27.0-31.0); Mean Corpuscular Volume 91.8 fL (78.0-102.0); Platelet Count Result 256 K/mm3 (150-420); Red Blood Count 4.25 M/mm3 (4.20-5.40); White Blood Count 7.2 K/mm3 (4.8-10.8)
[2025-04-04 12:50] LABS: Anion Gap 7 mmol/L (4-12); Blood Urea Nitrogen 11 mg/dL (7-17); Calcium 9.9 mg/dL (8.4-10.2); Carbon Dioxide 28 mmol/L (22-30); Chloride 105 mmol/L (98-107); Estimated Glomerular Filt Rate > 60; Glucose 107 mg/dL (65-110); Osmolality Calculated 289 mOsm/kg (285-295); Potassium 4.1 mmol/L (3.4-5.0); Sodium 140 mmol/L (137-145)
== END 2025-04-04 12:05 | disposition home or self-care (01) ==
LOC: CHSLAB 12:06
PROVIDERS: PCP Physician Assistant; Visit Provider Physician Assistant
DX: Z01.818 Encounter for other preprocedural examination (principal)
CPT/HCPCS: 36415; 80048; 80053; 85027